=== PATIENT | male | born 1945 | race African-American/Black ===

== ENCOUNTER 2016-10-19 21:43 | Emergency (ER) | payer MEDICARE, OTHER ==
[2016-10-19 21:52] VITALS: BP 145/64
[2016-10-19] MEDS ORDERED: ACETAMINOPHEN 325 MG TABLET PO ONE (22:38)
[2016-10-20] MEDS ORDERED: BENZONATATE 100 MG CAPSULE PO ONE (01:08)
--- NOTE | 2016-10-20 01:54 | ER Document Report ---
ED General - General Chief Complaint: Flu Symptoms Stated Complaint: FLU LIKE SYMPTOMS Notes: Patient is a 71-year-old male with past history of lung cancer in remission, not currently on any chemotherapy who presents with 12 hours of cough, sinus congestion, rhinorrhea, pressure over the forehead. Multiple sick contacts with similar illness. Patient denies any recent history of similar symptoms. He did have a partial pneumonectomy of the left lung back in May 2016. He has not seen his primary care doctor regarding today's concerns. He did receive an influenza vaccination this year. He has not had any associated vomiting, diarrhea, neck pain or altered mental status. He has not done anything to try to treat his symptoms. Nothing worsens his symptoms. TRAVEL OUTSIDE OF THE [place] IN LAST 30 DAYS: No - Related Data Allergies/Adverse Reactions: No Known Allergies Allergy (Verified 06/29/16 17:59) Past Medical History - General Information source: Patient - Social History Smoking Status: Former Smoker Chew tobacco use (# tins/day): No Frequency of alcohol use: None Drug Abuse: None Lives with: Spouse/Significant other Family History: Reviewed & Not Pertinent Patient has suicidal ideation: No Patient has homicidal ideation: No - Past Medical History Cardiac Medical History: Reports: Hx Hypertension Renal/ Medical History: Denies: Hx Peritoneal Dialysis Past Surgical History: Reports: Hx Inguinal Hernia - Immunizations Immunizations up to date: Yes Hx Diphtheria, Pertussis, Tetanus Vaccination: Yes Review of Systems - Review of Systems Notes: Constitutional: Positive for fever. HENT: Negative for sore throat. Eyes: Negative for visual changes. Cardiovascular: Negative for chest pain. Respiratory: Negative for shortness of breath. Positive for cough Gastrointestinal: Negative for abdominal pain, vomiting or diarrhea. Genitourinary: Negative for dysuria. Musculoskeletal: Negative for back pain. Skin: Negative for rash. Neurological: Negative for headaches, weakness or numbness. 10 point ROS negative except as marked above and in HPI. Physical Exam - Vital signs Vitals: Temp Pulse Resp BP Pulse Ox 100.7 F H 87 16 145/64 H 95 10/19/16 21:51 10/19/16 21:51 10/19/16 21:51 10/19/16 21:51 10/19/16 21:51 Interpretation: Febrile Notes: PHYSICAL EXAMINATION: GENERAL: Well-appearing, well-nourished and in no acute distress. HEAD: Atraumatic, normocephalic. EYES: Pupils equal round and reactive to light, extraocular movements intact, sclera anicteric, conjunctiva are normal. ENT: nares patent, oropharynx clear without exudates. Moist mucous membranes. NECK: Normal range of motion, supple without lymphadenopathy LUNGS: Breath sounds clear to auscultation bilaterally and equal. No wheezes rales or rhonchi. HEART: Regular rate and rhythm without murmurs ABDOMEN: Soft, nontender, normoactive bowel sounds. No guarding, no rebound. No masses appreciated. EXTREMITIES: Normal range of motion, no pitting or edema. No cyanosis. NEUROLOGICAL: No focal neurological deficits. Moves all extremities spontaneously and on command. PSYCH: Normal mood, normal affect. SKIN: Warm, Dry, normal turgor, no rashes or lesions noted. Course - Re-evaluation Re-evalutation: 10/20/16 01:54 Patient presents with cough, sinus congestion, rhinorrhea and generalized fatigue. He does have a fever here to 100.7 but vitals are otherwise within normal limits. Multiple sick contacts with similar illness. Presentation is most consistent with a likely viral upper respiratory illness. Influenza testing is negative. Chest x-ray without evidence of acute pneumonia. No egophony on exam. No diminished breath sounds. At this point I do not suspect clinically an acute pneumonia as patient's respiratory rate is normal, pulse oximetry is within normal limits and he is not tachycardic. Clinical history likewise is not consistent with acute pulmonary embolus, meningitis, and patient denies any vomiting, diarrhea, or abdominal pain to suggest an acute abdominal pathology as etiology of his presentation today. I do not believe blood work or urinalysis are indicated at this time based on patient's overall very well appearance and normal vitals with exception of a low-grade fever. At this time will discharge with return precautions and follow-up recommendations. Verbal discharge instructions given a the bedside and opportunity for questions given. Medication warnings reviewed. Patient is in agreement with this plan and has verbalized understanding of return precautions and the need for primary care follow-up in the next 24-72 hours. - Vital Signs Vital signs: Temp Pulse Resp BP Pulse Ox 100.7 F H 87 16 145/64 H 95 10/19/16 21:51 10/19/16 21:51 10/19/16 21:51 10/19/16 21:51 10/19/16 21:51 - Diagnostic Test Radiology reviewed: Image reviewed, Reports reviewed Radiology results interpreted by me: 10/20/16 01:57 Chest x-ray: No acute infiltrate Discharge - Discharge Clinical Impression: Fever Qualifiers: Fever type: unspecified Qualified Code(s): R50.9 - Fever, unspecified Upper respiratory infection Qualifiers: URI type: unspecified URI Qualified Code(s): J06.9 - Acute upper respiratory infection, unspecified Condition: Good Disposition: HOME, SELF-CARE Additional Instructions: Please follow closely with her primary care doctor in the next 1-2 days. Return to the emergency department immediately if you have worsening of your symptoms including increased shortness of breath, vomiting, vomiting, you pass out, began to have abdominal pain, or have any other symptoms that are worrisome to you. Take Tylenol or ibuprofen as needed at home for your symptoms. You can use the Tessalon Perles that were prescribed as needed for severe coughing. Prescriptions: Benzonatate [Tessalon Perle 100 mg Capsule] 100 mg PO Q8HP PRN #40 cap PRN Reason: Referrals: GARRETT CHAPMAN MD [Primary Care Provider] - Follow up tomorrow
== END 2016-10-20 02:14 | disposition home or self-care (01) ==
LOC: ER 21:43
DX: J06.9 Acute upper respiratory infection, unspecified (principal); R50.9 Fever, unspecified; I10 Essential (primary) hypertension; Z87.891 Personal history of nicotine dependence
CPT/HCPCS: 99284; 87804; 71020; A9270 ×2

== ENCOUNTER → 2016-11-05 | Outpatient (CLI) | payer MEDICARE, OTHER | LOC: RAD 10:11 | PROVIDERS: ATTEND Internal Medicine | DX: C34.11 Malignant neoplasm of upper lobe, right bronchus or lung (principal) | CPT/HCPCS: 71250 ==

== ENCOUNTER → 2017-02-08 | Outpatient (CLI) | payer MEDICARE, OTHER ==
--- NOTE | 2017-02-08 09:57 | RADIOLOGY REPORT (SQ) ---
EXAM DESCRIPTION: CT CHEST WITHOUT COMPLETED DATE/TIME: 02/08/2017 9:20 am REASON FOR STUDY: LUNG CA (C34.11,C34.12) C34.11 MALIGNANT NEOPLASM OF UPPER LOBE, RIGHT BRONCHUS O R L COMPARISON: CT dated 11/05/2016 and 11/03/2015. PET-CT dated 04/30/2016 and 01/09/2016. TECHNIQUE: CT scan performed of the chest without intravenous contrast. Images reviewed with lung, soft tissue and bone windows. Reconstructed coronal and sagittal MPR images reviewed. All images st ored on PACS. All CT scanners at this facility use dose modulation, iterative reconstruction, and/or weight based d osing when appropriate to reduce radiation dose to as low as reasonably achievable (ALARA). [facility]: Dose Right [facility]: CareDose [facility]: Dose Right [facility]: Teradose 4D [facility]: [employer] RADIATION DOSE: Up-to-date CT equipment and radiation dose reduction techniques were employed. CTDIv ol: 13.8 mGy. DLP: 497 mGy-cm. mGy. LIMITATIONS: No technical limitations. FINDINGS: LUNGS AND PLEURA: Stable surgical changes in both lungs. Focal density in the posterior l eft upper lobe, abutting the major fissure, with associated surgical clips, unchanged, most likely po stoperative scar. No new nodules or masses. No infiltrates. No pleural effusion or pleural thicken ing. HILAR AND MEDIASTINAL STRUCTURES: Stable 1.2 cm lymph node in the anterior mediastinum. Otherwise no significant adenopathy. No obvious aneurysm. HEART AND VASCULAR STRUCTURES: No aneurysm. No pericardial effusion. Coronary artery calcifications . UPPER ABDOMEN: No significant findings. Possible small gallstone. Limited exam. THYROID AND OTHER SOFT TISSUES: Stable thyromegaly with heterogenous appearance. No adenopathy. BONES: No significant finding. HARDWARE: None in the chest. OTHER: No other significant findings. IMPRESSION: STABLE APPEARANCE OF THE CHEST. STABLE SURGICAL CHANGES IN BOTH LUNGS AND SMALL LYMPH N ODE IN THE ANTERIOR MEDIASTINUM. NO CT EVIDENCE OF PROGRESSION OR OTHER SIGNIFICANT CHANGE. TECHNICAL DOCUMENTATION: JOB ID: [id number] Quality ID # [id number]: Final reports with documentation of one or more dose reduction techniques (e.g., Au tomated exposure control, adjustment of the mA and/or kV according to patient size, use of iterative reconstruction technique) 2010 [employer]- All Rights Reserved
== END ==
LOC: RAD 08:57
PROVIDERS: ATTEND Internal Medicine
DX: C34.11 Malignant neoplasm of upper lobe, right bronchus or lung (principal); C34.12 Malignant neoplasm of upper lobe, left bronchus or lung
CPT/HCPCS: 71250

== ENCOUNTER 2017-03-04 12:51 | Emergency (ER) | payer MEDICARE, OTHER ==
[2017-03-04 13:59] LABS: ABSOLUTE BASOPHILS # (AUTO) 0.1 10^3/uL (0.0-0.2); ABSOLUTE EOSINOPHILS # (AUTO) 0.1 10^3/uL (0.0-0.6); ABSOLUTE LYMPHOCYTES (AUTO) 1.9 10^3/uL (0.5-4.7); ABSOLUTE MONOCYTES (AUTO) 0.6 10^3/uL (0.1-1.4); ABSOLUTE NEUT (AUTO) 3.9 10^3/uL (1.7-8.2); BASOPHILS % (AUTO) 1.4 % (0-2); EOSINOPHILS % (AUTO) 2.1 % (0-6); HEMATOCRIT 38.6 % (37.9-51.0); HEMOGLOBIN 13.1 g/dL (13.5-17.0); HGB HCT DIFFERENCE 0.7; LYMPHOCYTES % (AUTO) 29.1 % (13-45); MEAN CORPUSCULAR HEMOGLOBIN 29.4 pg (27.0-33.4); MEAN CORPUSCULAR HGB CONC 33.9 g/dL (32.0-36.0); MEAN CORPUSCULAR VOLUME 87 fl (80-97); MONOCYTES % (AUTO) 9.2 % (3-13); RED BLOOD COUNT 4.45 10^6/uL (4.35-5.55); RED CELL DISTRIBUTION WIDTH 15.9 % (11.5-14.0); SEGMENTED NEUTROPHILS % (AUTO) 58.2 % (42-78); WHITE BLOOD COUNT 6.6 10^3/uL (4.0-10.5)
[2017-03-04 14:13] LABS: ALANINE AMINOTRANSFERASE 35 U/L (21-72); ALBUMIN 4.2 g/dL (3.5-5.0); ALKALINE PHOSPHATASE 53 U/L (38-126); ANION GAP 12 (5-19); ASPARTATE AMINO TRANSFERASE 24 U/L (17-59); BILIRUBIN,DIRECT 0.3 mg/dL (0.0-0.4); BILIRUBIN,TOTAL 0.5 mg/dL (0.2-1.3); BLOOD UREA NITROGEN 21 mg/dL (7-20); CALCIUM 9.2 mg/dL (8.4-10.2); CARBON DIOXIDE 23 mmol/L (22-30); CHLORIDE 105 mmol/L (98-107); CREATININE RESULT 1.24 mg/dL (0.52-1.25); GLUCOSE 85 mg/dL (75-110); POTASSIUM 4.2 mmol/L (3.6-5.0); SODIUM 139.8 mmol/L (137-145); TOTAL PROTEIN 7.3 g/dL (6.3-8.2)
--- NOTE | 2017-03-04 14:18 | RADIOLOGY REPORT (SQ) ---
EXAM DESCRIPTION: SOFT TISSUE NECK COMPLETED DATE/TIME: 03/04/2017 2:09 pm REASON FOR STUDY: sore throat after pork COMPARISON: None. NUMBER OF VIEWS: Two views. TECHNIQUE: AP and lateral radiographic image of the soft tissues of the neck. LIMITATIONS: None. FINDINGS: EPIGLOTTIS: Normal. Contour normal. Aryepiglottic folds normal. PREVERTEBRAL SOFT TISSUES: Normal. No soft tissue swelling. SUBGLOTTIC AREA: Normal. No narrowing. RETROPHARYNGEAL SPACE: Normal. No soft tissue masses. BONY STRUCTURES: Degenerative disc changes are present at C5-6 and C6-7. Anterior osteophytes are pr esent from C4-C7. LUNG APICES: Normal. OTHER: No radiopaque foreign bodies IMPRESSION: 1. Unremarkable soft tissues of the neck. 2. Cervical degenerative disc disease and spondylosis. TECHNICAL DOCUMENTATION: JOB ID: [id number] [email or web address]- All Rights Reserved
[2017-03-04] MEDS ORDERED: METOCLOPRAMIDE HCL ORAL SOLN 10 MG/10 ML UDCUP PO ONE (14:25)
[2017-03-04] MEDS ORDERED: MAG HYDROX/AL HYDROX/SIMETH SUSP 30 ML UDCUP PO ONE (14:25)
[2017-03-04] MEDS ORDERED: LIDOCAINE 2% VISCOUS SOLN 20 ML UDCUP PO ONE (14:25)
--- NOTE | 2017-03-04 14:26 | ER Document Report ---
ED General - General Chief Complaint: Sore Throat Stated Complaint: SORE THROAT Time Seen by Provider: 03/04/17 13:31 Mode of Arrival: Ambulatory Information source: Patient TRAVEL OUTSIDE OF THE [place] IN LAST 30 DAYS: No - HPI Patient complains to provider of: Sore throat, difficulty swallowing Onset: This morning Onset/Duration: Sudden Quality of pain: Achy Severity: Mild Associated symptoms: Sore throat Notes: Patient is a 71-year-old male who presents to the emergency room complaining of sore throat with foreign body sensation, states it started after he ate some pork chops at lunchtime, states he feels as though he has a piece of pork chop stuck in his throat, since then he has been able to eat some crackers, and drinks some juice without any difficulty, he still feels some irritation in the back of his throat, denies any difficulty breathing, no chest pain, no shortness of breath, no history of similar symptoms previously - Related Data Allergies/Adverse Reactions: No Known Allergies Allergy (Verified 03/04/17 12:57) Past Medical History - General Information source: Patient - Social History Smoking Status: Former Smoker Chew tobacco use (# tins/day): No Frequency of alcohol use: None Drug Abuse: None Family History: Reviewed & Not Pertinent - Past Medical History Cardiac Medical History: Reports: Hx Hypertension Renal/ Medical History: Denies: Hx Peritoneal Dialysis Past Surgical History: Reports: Hx Inguinal Hernia - Immunizations Immunizations up to date: Yes Hx Diphtheria, Pertussis, Tetanus Vaccination: Yes Review of Systems - Review of Systems Constitutional: No symptoms reported EENT: See HPI Cardiovascular: No symptoms reported Respiratory: No symptoms reported Gastrointestinal: No symptoms reported Genitourinary: No symptoms reported Male Genitourinary: No symptoms reported Musculoskeletal: No symptoms reported Skin: No symptoms reported Hematologic/Lymphatic: No symptoms reported Neurological/Psychological: No symptoms reported -: Yes All other systems reviewed and negative Physical Exam - Vital signs Vitals: Temp Pulse Resp BP Pulse Ox 98.8 F 69 18 149/70 H 99 03/04/17 12:55 03/04/17 12:55 03/04/17 12:55 03/04/17 12:55 03/04/17 12:55 Interpretation: Normal - General General appearance: Appears well, Alert - HEENT Head: Normocephalic, Atraumatic Eyes: Normal Conjunctiva: Normal Extraocular movements intact: Yes Eyelashes: Normal Pupils: PERRL Pharynx: Erythema. No: Exudate, Tonsillar hypertrophy, Uvular edema, Potential airway comprom. Neck: Normal - Respiratory Respiratory status: No respiratory distress Chest status: Nontender Breath sounds: Normal Chest palpation: Normal - Cardiovascular Rhythm: Regular Heart sounds: Normal auscultation Murmur: No - Abdominal Inspection: Normal Distension: No distension Bowel sounds: Normal Tenderness: Nontender Organomegaly: No organomegaly - Back Back: Normal, Nontender - Extremities General upper extremity: Normal inspection, Nontender, Normal color, Normal ROM , Normal temperature General lower extremity: Normal inspection, Nontender, Normal color, Normal ROM , Normal temperature, Normal weight bearing. No: Shagufta's sign - Neurological Neuro grossly intact: Yes Cognition: Normal Orientation: AAOx4 Burns Coma Scale Eye Opening: Spontaneous Trina Coma Scale Verbal: Oriented Burns Coma Scale Motor: Obeys Commands Trina Coma Scale Total: 15 Speech: Normal Motor strength normal: LUE, RUE, LLE, RLE Sensory: Normal - Psychological Associated symptoms: Normal affect, Normal mood - Skin Skin Temperature: Warm Skin Moisture: Dry Skin Color: Normal Course - Re-evaluation Re-evalutation: 03/04/17 15:53 Patient reports feeling some improvement of symptoms since having a GI cocktail , he was also able to drink a large glass of water afterwards, I believe symptoms are likely related to esophageal irritation from swallowing a large piece of pork that he initially thought was impacted, since he is able to drink a large amount of water is unlikely that he has any significant knee impaction at this point in time, therefore patient was discharged with instructions for follow-up with gastroenterology, advised to return if symptoms worsen, patient acknowledges understanding and agreement with this plan - Vital Signs Vital signs: Temp Pulse Resp BP Pulse Ox 98.8 F 65 18 124/81 96 03/04/17 12:55 03/04/17 16:14 03/04/17 16:14 03/04/17 16:14 03/04/17 16:14 - Laboratory Result Diagrams: 03/04/17 13:40 03/04/17 13:40 Laboratory results interpreted by me: 03/04/17 03/04/17 13:40 13:40 Hgb 13.1 L RDW 15.9 H BUN 21 H Est GFR (Non-Af Amer) 57 L - Diagnostic Test Radiology reviewed: Image reviewed, Reports reviewed Discharge - Discharge Clinical Impression: Throat irritation Condition: Stable Disposition: HOME, SELF-CARE Instructions: Sore Throat ([facility]), Gastroenterology Additional Instructions: Follow up with your primary care provider in one to 2 days. Return to the emergency room immediately if symptoms worsen or any additional concerns.
[2017-03-04 15:42] LABS: PROTHROMBIN TIME 13.1 SEC (11.4-15.4)
[2017-03-04 16:16] VITALS: BP 124/81
== END 2017-03-04 16:14 | disposition home or self-care (01) ==
LOC: ER 12:51
DX: J02.9 Acute pharyngitis, unspecified (principal); R13.10 Dysphagia, unspecified; R09.89 Other specified symptoms and signs involving the circulatory and respiratory systems; I10 Essential (primary) hypertension; Z87.891 Personal history of nicotine dependence
CPT/HCPCS: 99283; 36415; 85025; 85610; 80053; 70360; J3490; A9270

== ENCOUNTER → 2017-04-05 | Outpatient (CLI) | payer MEDICARE, OTHER | LOC: OD 11:18 | PROVIDERS: ATTEND Urology | DX: C61 Malignant neoplasm of prostate (principal); C34.90 Malignant neoplasm of unspecified part of unspecified bronchus or lung; I10 Essential (primary) hypertension; N52.8 Other male erectile dysfunction; N52.9 Male erectile dysfunction, unspecified | CPT/HCPCS: 36415; 84153 ==

== ENCOUNTER → 2017-05-11 | Outpatient (CLI) | payer MEDICARE, OTHER ==
--- NOTE | 2017-05-11 10:23 | RADIOLOGY REPORT (SQ) ---
EXAM DESCRIPTION: CT CHEST WITHOUT COMPLETED DATE/TIME: 05/11/2017 8:32 am REASON FOR STUDY: LUNG CA C34.11 MALIGNANT NEOPLASM OF UPPER LOBE, RIGHT BRONCHUS OR L COMPARISON: 02/08/2017. TECHNIQUE: CT scan performed of the chest without intravenous contrast. Images reviewed with lung, soft tissue and bone windows. Reconstructed coronal and sagittal MPR images reviewed. All images st ored on PACS. All CT scanners at this facility use dose modulation, iterative reconstruction, and/or weight based d osing when appropriate to reduce radiation dose to as low as reasonably achievable (ALARA). [facility]: Dose Right [facility]: CareDose [facility]: Dose Right [facility]: Teradose 4D [facility]: [employer] RADIATION DOSE: Up-to-date CT equipment and radiation dose reduction techniques were employed. CTDIv ol: 15.7 mGy. DLP: 572 mGy-cm. mGy. LIMITATIONS: No technical limitations, however non use of IV contrast limits assessment of the vesse ls. FINDINGS: LUNGS AND PLEURA: Focal nodular airspace disease in the left upper lobe abuts the left trish or fissure. Similar appearance measuring up to just under 2 cm maximal transverse dimension. This l ooks like scar. Additional areas of scarring along with motion artifact. No developing nodules or m asses or infiltrates, however. Trace right pleural fluid has developed. HILAR AND MEDIASTINAL STRUCTURES: Numerous small nodes in the mediastinum, relatively stable and nonp rogressive. Generally subcentimeter. HEART AND VASCULAR STRUCTURES: Cardiac enlargement with coronary calcification. No pericardial effus ion. Mild dilatation ascending aorta just over 4 cm. Stable appearance. UPPER ABDOMEN: No developing adrenal or liver mass. THYROID AND OTHER SOFT TISSUES: Enlarged thyroid with low-density nodule on the left, chronic. No gr oss supraclavicular or axillary adenopathy. BONES: No developing bone lesions. HARDWARE: None in the chest. OTHER: No other significant findings. IMPRESSION: 1. Stable appearance. Postoperative changes in the lungs have not progressed. No deve loping lesions. Mild shotty mediastinal adenopathy is also stable. TECHNICAL DOCUMENTATION: JOB ID: [id number] Quality ID # [id number]: Final reports with documentation of one or more dose reduction techniques (e.g., Au tomated exposure control, adjustment of the mA and/or kV according to patient size, use of iterative reconstruction technique) 2010 [employer]- All Rights Reserved
== END ==
LOC: RAD 08:13
PROVIDERS: ATTEND Internal Medicine
DX: C34.11 Malignant neoplasm of upper lobe, right bronchus or lung (principal)
CPT/HCPCS: 71250

== ENCOUNTER → 2017-08-20 | Outpatient (CLI) | payer MEDICARE, OTHER ==
--- NOTE | 2017-08-21 16:02 | RADIOLOGY REPORT (SQ) ---
EXAM DESCRIPTION: CT CHEST WITHOUT COMPLETED DATE/TIME: 08/20/2017 10:47 am REASON FOR STUDY: LUNG CA C34.11 MALIGNANT NEOPLASM OF UPPER LOBE, RIGHT BRONCHUS OR L COMPARISON: 05/11/2017 and 02/08/2017. TECHNIQUE: CT scan performed of the chest without intravenous contrast. Images reviewed with lung, soft tissue and bone windows. Reconstructed coronal and sagittal MPR images reviewed. All images st ored on PACS. All CT scanners at this facility use dose modulation, iterative reconstruction, and/or weight based d osing when appropriate to reduce radiation dose to as low as reasonably achievable (ALARA). [facility]: Dose Right [facility]: CareDose [facility]: Dose Right [facility]: Teradose 4D [facility]: [employer] RADIATION DOSE: CT Rad equipment meets quality standard of care and radiation dose reduction techniq ues were employed. CTDIvol: 17.8 mGy. DLP: 669 mGy-cm. mGy. LIMITATIONS: No technical limitations. FINDINGS: LUNGS AND PLEURA: Stable surgical changes with scarring. Focal nodule in the left upper l obe anterior to the major fissure unchanged, measuring 1 x 1.9 cm. No new nodules or masses. No ple ural effusion or pleural thickening. HILAR AND MEDIASTINAL STRUCTURES: Several lymph nodes in the paratracheal region and anterior mediast inum are unchanged. The largest anterior mediastinal lymph node measures 1.2 cm. There is an enlarg ing mass in the upper posterior mediastinum, adjacent to the T2 vertebral body, located to the right side of the esophagus, measuring 1.2 x 2.2 cm (series 3, image 9). HEART AND VASCULAR STRUCTURES: No aneurysm. No pericardial effusion. UPPER ABDOMEN: No significant findings. Limited exam. THYROID AND OTHER SOFT TISSUES: Diffusely enlarged heterogenous thyroid. Focal coarse calcification. No adenopathy. BONES: No significant finding. HARDWARE: None in the chest. OTHER: No other significant findings. IMPRESSION: 1. STABLE SURGICAL CHANGES IN THE LUNGS. STABLE NODULARITY IN THE LEFT UPPER LOBE ADJACENT TO THE MA CARMELLA FISSURE. NO PROGRESSION. NO NEW NODULES OR MASSES. 2. STABLE SHOTTY ADENOPATHY IN THE ANTERIOR MEDIASTINUM AND PARATRACHEAL REGION. 3. ENLARGING MASS IN THE UPPER POSTERIOR MEDIASTINUM DESCRIBED. THIS PRESUMABLY REPRESENTS AN ENL ARGING LYMPH NODE. FURTHER EVALUATION WITH PET SCAN AND POSSIBLY MRI OF THE THORACIC SPINE MAY BE CO NSIDERED. 4. DIFFUSE THYROMEGALY. TECHNICAL DOCUMENTATION: JOB ID: [id number] Quality ID # [id number]: Final reports with documentation of one or more dose reduction techniques (e.g., Au tomated exposure control, adjustment of the mA and/or kV according to patient size, use of iterative reconstruction technique) 2010 [employer]- All Rights Reserved
== END ==
LOC: RAD 10:30
PROVIDERS: ATTEND Internal Medicine
DX: C34.11 Malignant neoplasm of upper lobe, right bronchus or lung (principal)
CPT/HCPCS: 71250

== ENCOUNTER → 2017-08-28 | Outpatient (CLI) | payer MEDICARE, OTHER ==
--- NOTE | 2017-08-29 10:10 | RADIOLOGY REPORT (SQ) ---
EXAM DESCRIPTION: PET CT SKULL/THIGH COMPLETED DATE/TIME: 08/28/2017 8:26 pm REASON FOR STUDY: LUNG CANCER C34.11 MALIGNANT NEOPLASM OF UPPER LOBE, RIGHT BRONCHUS OR L COMPARISON: 04/30/2016 RADIONUCLIDE AND DOSE: 10.2 mCi F18 FDG The route of agent administration: Intravenous FASTING BLOOD SUGAR: 89 mg/dl CONTRAST TYPE AND DOSE: No CT contrast given. TECHNIQUE: Blood glucose level was verified. Above dose of FDG was injected intravenously. 2-D seg mented attenuation correction images were obtained from the base of the skull to the midthighs. Nonc ontrast CT images were obtained for attenuation correction and fusion with emission images. CT image s were performed without oral or intravenous contrast and are not sensitive for parenchymal lesions. A series of overlapping emission PET images were obtained. Images reviewed and manipulated at [facility] work station by the radiologist. Images stored on PACS. LIMITATIONS: None. FINDINGS: HEAD AND NECK: No areas of abnormal metabolic activity in the soft tissues of the head and neck. CHEST: Station 2R node measuring 1.4 x 2.6 cm and 10.0 SUV. Pleural thickening right lower lobe measuring 5.8 SUV. Margins roughly 1.2 x 2.2 cm. There is a lyt ic lesion in the adjacent rib. ABDOMEN AND PELVIS: No areas of abnormal metabolic activity in the abdomen or pelvis. Expected physi ologic activity is present in the genitourinary system and bowel. PROXIMAL LOWER EXTREMITIES: No areas of abnormal metabolic activity in the soft tissues of the lower extremities. BONES: No abnormal metabolic activity in the visualized skeleton. ADDITIONAL CT FINDINGS: Interval wedge resection of middle lobe and left apical nodules. Residual sc ar tissue left apex, non hypermetabolic. Cholelithiasis. OTHER: No other significant findings. IMPRESSION: Hypermetabolic station 2 R node. Hypermetabolic pleural lesion right lower lobe with ad jacent rib destruction. TECHNICAL DOCUMENTATION: JOB ID: [id number] [employer]- All Rights Reserved
== END ==
LOC: RAD 17:19
PROVIDERS: ATTEND Internal Medicine
DX: C34.11 Malignant neoplasm of upper lobe, right bronchus or lung (principal)
CPT/HCPCS: 78815; A9552

== ENCOUNTER 2017-09-19 08:44 | Day surgery (SDC) | payer MEDICARE, OTHER ==
[~2017-09-19 08:44] MED LIST: CEFAZOLIN 1 GM/D5W RTU 1 GM/50 ML RTUPB IV PRN; DEXTROSE 5%-1/2 NORMAL SALINE 1,000 ML IV PRN; DIAZEPAM 5 MG TABLET PO PRN; OXYCODONE-ACETAMINOPHEN 5-325 MG TABLET PO PRN
[2017-09-19] MEDS ORDERED: LIDOCAINE 0.5% INJ-PF (5 MG/ML) 50 ML SDV ONE (09:15)
[2017-09-19] MEDS ORDERED: BACITRACIN INJ 50,000 UNIT VIAL ONE (09:15)
[2017-09-19 09:16] LABS: HEMATOCRIT 38.6 % (37.9-51.0); HEMOGLOBIN 12.7 g/dL (13.5-17.0); MEAN CORPUSCULAR HEMOGLOBIN 26.5 pg (27.0-33.4); MEAN CORPUSCULAR HGB CONC 32.8 g/dL (32.0-36.0); MEAN CORPUSCULAR VOLUME 81 fl (80-97); PLATELET COUNT 355 10^3/uL (150-450); RED BLOOD COUNT 4.77 10^6/uL (4.35-5.55); RED CELL DISTRIBUTION WIDTH 17.2 % (11.5-14.0); WHITE BLOOD COUNT 8.1 10^3/uL (4.0-10.5)
[2017-09-19] MEDS ORDERED: MIDAZOLAM 2 MG/2 ML INJ ONE (09:19)
[2017-09-19] MEDS ORDERED: FENTANYL CITRATE INJ/PF 100 MCG/2 ML AMPUL ONE (09:20)
--- NOTE | 2017-09-19 09:31 | RADIOLOGY REPORT (SQ) ---
EXAM DESCRIPTION: CHEST SINGLE VIEW COMPLETED DATE/TIME: 09/19/2017 9:22 am REASON FOR STUDY: PREOP COMPARISON: None. EXAM PARAMETERS: NUMBER OF VIEWS: One view. TECHNIQUE: Single frontal radiographic view of the chest acquired. RADIATION DOSE: NA LIMITATIONS: None. FINDINGS: LUNGS AND PLEURA: Chronic changes in the right base. No acute opacities, masses or pneumo thorax. No pleural effusion. MEDIASTINUM AND HILAR STRUCTURES: No masses. Contour normal. HEART AND VASCULAR STRUCTURES: Heart normal in size. Normal vasculature. BONES: No acute findings. HARDWARE: None in the chest. OTHER: No other significant finding. IMPRESSION: Chronic changes in the medial right base without evidence of acute cardiopulmonary disea se. TECHNICAL DOCUMENTATION: JOB ID: [id number] [employer]- All Rights Reserved
[2017-09-19 09:43] LABS: ANION GAP 13 (5-19); BLOOD UREA NITROGEN 12 mg/dL (7-20); CALCIUM 9.9 mg/dL (8.4-10.2); CARBON DIOXIDE 22 mmol/L (22-30); CHLORIDE 107 mmol/L (98-107); GLUCOSE 111 mg/dL (75-110); POTASSIUM 4.1 mmol/L (3.6-5.0); SODIUM 141.7 mmol/L (137-145)
[2017-09-19 12:07] VITALS: BP 152/92
--- NOTE | 2017-09-19 12:15 | PDOC DISCHARGE SUMMARY ---
Discharge Summary (SDC) - Discharge Final Diagnosis: #1 lung cancer, multiple comorbidities. Condition: Stable Forms: ASU Anesthesia D/C Instruction, Discharge POC-Surgical Service Treatment or Instructions: Discharge home [after recovery per ASU criteria]. Diet , as tolerated, when fully awake advance as tolerated. Activities within moderation encouraged. Follow up in my office by appointment in about [1 week]. Call for appointment. Leave wounds [covered], [keep clean and dry, until office visit in 1 week]. Hold of on school/work [until evaluation in office]. Meds per med rec. Percocet. May shower [in 48 hrs], [try to keep operated area as dry as possible]. Prescriptions: Oxycodone HCl/Acetaminophen [Percocet 5-325 mg Tablet] 1 tab PO ASDIR PRN #15 tab PRN Reason: Referrals: DIANE WOODS MD [ACTIVE STAFF] - 09/29/17 10:15 am Respiratory Treatments at Home: Deep Breathing/Coughing Discharge Activity: Activity As Tolerated, Balance Activity w/Rest, No Driving, No Lifting Over 10 Pounds, Slowly Increase Activity, Walk Frequently Home Care Assistance: None Needed Report the Following to Your Physician Immediately: Shortness of Breath, Nausea , Vomiting, Increase in Pain, Fever over 101 Degrees, Unusual Bleeding, Redness , Swelling, Warmth, Increased Soreness, IV Site Infection Signs
--- NOTE | 2017-09-19 12:19 | Operative Report ---
Operative Report DATE OF SURGERY: 09/19/17 PREOPERATIVE DIAGNOSIS: #1 lung cancer, multiple comorbidities. POSTOPERATIVE DIAGNOSIS: #1 lung cancer, multiple comorbidities. OPERATION: 1. Ultrasound evaluation of left internal jugular vein. 2. Real- time access in left internal jugular vein. 3. Port-A-Cath placement via real- time axis and left internal jugular vein. 4. Angiogram and interpretation. SURGEON: DIANE BROCK FRETTED INSTRUMENT REPAIRER: None. ANESTHESIA: Moderate Sedation TISSUE REMOVED OR ALTERED: Not applicable. COMPLICATIONS: None. ESTIMATED BLOOD LOSS: 5 mL. INTRAOPERATIVE FINDINGS: Of a satisfactory left internal jugular vein support Port-A-Cath. Good position of catheter with the tip just down in the right atrium. Smooth flow of contrast through the right atrium, ventricle and pulmonary outflow tract. Easy egress of blood and ingress of heparinized solution. PROCEDURE: After obtaining informed consent, the patient was taken to the [employer] [employer] [facility] and positioned supine. The left knee and chest were prepared with chlorhexidine and draped out with sterile linen. After the " universal timeout", in which it was verified that the patient continued to receive antibiotic, the procedure commenced. A steriley sheathed ultrasound probe was used to evaluate the [ right] internal jugular vein. Local anesthesia was infiltrated adjacent to the probe. Access into the [right] internal jugular vein was obtained using a micropuncture needle, followed by micropuncture wire and then a micropuncture catheter. This was followed by introduction of a 0.035 guidewire the tip of which was placed down into the inferior vena cava . The port sites was marked , locally anesthetized and incision made. Dissection now proceeded to the deep subcutaneous subcutaneous tissues so that a pocket for the port was made. Meticulous hemostasis was secured and the catheter was tunneled between the 2 incisions. Proximally, the catheter was now positioned using a peel-away sheath. Distally the catheter was tailored to an appropriate length and then mated to the port using the contained fixating device. The port was now placed in the pocket and the catheter optimally positioned. The port was accessed with a Low needle and an angiogram done under digital subtraction. The findings as dictated. With adequate and satisfactory positioning, both lumens of the chamber were irrigated with heparinized solution. The wounds were now closed using interrupted 3-0 PDS to the subcutaneous tissues and a continuous subcuticular suture of 4-0 Monocryl to the skin. These are reinforced with Steri-Strips over benzoin and then dressings applied. Time: 0.0 minute. Dose: 14.9 m Gy Contrast: 5 mls. Isovue 300. Copies of the dictated operative report for Dr. Diane Edmond MD.
--- NOTE | 2017-09-19 16:25 | RADIOLOGY REPORT (SQ) ---
EXAM DESCRIPTION: PORTACATH INSERTION COMPLETED DATE/TIME: 09/19/2017 10:50 am REASON FOR STUDY: C34.11 RT UPPER LOBE CA C34.11 MALIGNANT NEOPLASM OF UPPER LOBE, RIGHT BRONCHUS O R L COMPARISON: AP chest 09/19/2017 FLUOROSCOPY TIME: Less than 5 seconds 9 series of digital radiographic images saved to PACS. TECHNIQUE: Intra-operative images acquired during surgical procedure to evaluate progress. NUMBER OF IMAGES: 9 series of digital radiographic images LIMITATIONS: None. FINDINGS: Intra procedural imaging and fluoro during left-sided permanent central line placement IMPRESSION: Intra procedural imaging fluoro COMMENT: Quality ID [id number]: Final reports for procedures using fluoroscopy that document radiation exp osure indices, or exposure time and number of fluorographic images (if radiation exposure indices are not available) Please consult full operative report of the attending physician for description of the procedure. TECHNICAL DOCUMENTATION: JOB ID: [id number] [employer]- All Rights Reserved
== END 2017-09-19 12:05 | disposition home or self-care (01) ==
LOC: CCL 08:44
PROVIDERS: ATTEND Surgery
PROC: 02H633Z Insertion of Infusion Device into Right Atrium, Percutaneous Approach (ICD-10-PCS; principal; 2017-09-19)
DX: C34.11 Malignant neoplasm of upper lobe, right bronchus or lung (principal); I10 Essential (primary) hypertension; Z79.82 Long term (current) use of aspirin; Z79.899 Other long term (current) drug therapy
CPT/HCPCS: 36561; 36415; 85027; 80048; 76937; 77001; 71045; C1751; C1752; C1788; Q9967; J2250; J3490 ×2; J0690; A9270 ×2; J3010; J1644

== ENCOUNTER → 2017-11-10 | Outpatient (CLI) | payer MEDICARE, OTHER ==
--- NOTE | 2017-11-10 11:23 | RADIOLOGY REPORT (SQ) ---
EXAM DESCRIPTION: CT CHEST WITH; CT ABD/PELVIS WITH IV ONLY COMPLETED DATE/TIME: 11/10/2017 9:25 am REASON FOR STUDY: LUNG CA (C34.11) C34.11 MALIGNANT NEOPLASM OF UPPER LOBE, RIGHT BRONCHUS OR L COMPARISON: PET-CT 01/09/2016, 04/30/2016, 08/28/2017 CT chest 11/03/2015, 05/11/2017, 08/20/2017 CONTRAST TYPE AND DOSE: contrast/concentration: Isovue 370.00 mg/ml; Total Contrast Delivered: 100.0 ml; Total Saline Delivered: 72.0 ml RENAL FUNCTION: Creatinine 1.0 TECHNIQUE: CT scan of the chest performed using helical scanning technique with dynamic intravenous contrast injection. Images reviewed with lung, soft tissue and bone windows. Reconstructed coronal a nd sagittal MPR images reviewed. All images stored on PACS. CT scan of the abdomen and pelvis performed with intravenous and without oral contrastusing helical s mendy technique with dynamic intravenous contrast injection. Images reviewed with lung, soft tissu e and bone windows. Reconstructed coronal and sagittal MPR images reviewed. Delayed images for eval uation of the urinary system also acquired and evaluated. All images stored on PACS. All CT scanners at this facility use dose modulation, iterative reconstruction, and/or weight based d osing when appropriate to reduce radiation dose to as low as reasonably achievable (ALARA). [facility]: Dose Right [facility]: CareDose [facility]: Dose Right [facility]: Teradose 4D [facility]: [employer] RADIATION DOSE: CT Rad equipment meets quality standard of care and radiation dose reduction techniq ues were employed. CTDIvol: 12.8 - 16.7 mGy. DLP: 2296 mGy-cm. . LIMITATIONS: None. FINDINGS: CHEST: LUNGS AND PLEURA: Post right middle lobe resection with staple line present. No recurrent soft tissu e along the staple line or right hilum. Post wedge resection posterior aspect left upper lobe, with staple line. There stable scarring in th e inferior aspect of the staple line, measuring 2 x 1.2 cm in size, similar compared to 05/11/2017 an d 08/28/2017. HILAR AND MEDIASTINAL STRUCTURES: No identified masses or abnormal nodes. The 2.6 x 1.4 cm lymph nod e seen on 08/28/2017 has decreased in size significantly, now 0.6 x 0.6 cm on image 11. HEART AND VASCULAR STRUCTURES: No aneurysm or dissection. No central pulmonary emboli. No pericardi al effusion. HARDWARE: Left permanent central line tip superior vena cava. THYROID AND OTHER SOFT TISSUES: Stable thyromegaly BONES: No significant finding. OTHER: No other significant finding. ABDOMEN AND PELVIS: LIVER: Normal size. No masses. No dilated ducts. SPLEEN: Normal size. No focal lesions. PANCREAS: No masses. No significant calcifications. No adjacent inflammation or peripancreatic fluid collections. Pancreatic duct not dilated. GALLBLADDER: Tiny stones in the gallbladder, without gallbladder wall thickening or pericholecystic f luid. ADRENAL GLANDS: No significant masses or asymmetry. RIGHT KIDNEY AND URETER: No solid masses. Multiple subcentimeter right midpole cortical cysts. No s ignificant calcification. No hydronephrosis or hydroureter. LEFT KIDNEY AND URETER: No solid masses. Multiple subcentimeter left midpole cortical cysts. No sig nificant calcification. No hydronephrosis or hydroureter. AORTA AND VESSELS: No abdominal aortic aneurysm. No abdominal aortic dissection. Renal arteries, SMA, celiac without stenosis. There is stable aneurysmal dilatation of the right proximal common iliac a rtery 3 cm in diameter. RETROPERITONEUM: No retroperitoneal adenopathy, hemorrhage or masses. BOWEL AND PERITONEAL CAVITY: No masses or inflammatory changes. No free fluid or peritoneal masses. APPENDIX: Normal. ABDOMINAL WALL: Intact umbilical hernia repair PELVIS: No mass or free fluid. Normal bladder. BONES: No significant or acute findings. OTHER: No other significant finding. IMPRESSION: Decrease in size of upper mediastinal lymph node seen on 08/28/2017, currently 0.6 cm in greatest diameter Stable post therapeutic changes in the chest No CT evidence of metastatic disease to the abdomen or pelvis. 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 Tiny gallstones. TECHNICAL DOCUMENTATION: JOB ID: [id number] Quality ID # 436: Final reports with documentation of one or more dose reduction techniques (e.g., Au tomated exposure control, adjustment of the mA and/or kV according to patient size, use of iterative reconstruction technique) 2010 [employer]- All Rights Reserved Reading location - IP/workstation name: [email or web address]
== END ==
LOC: RAD 08:46
PROVIDERS: ATTEND Internal Medicine
DX: C34.11 Malignant neoplasm of upper lobe, right bronchus or lung (principal)
CPT/HCPCS: 71260; 74177

== ENCOUNTER → 2018-01-08 | Outpatient (CLI) | payer MEDICARE, OTHER ==
--- NOTE | 2018-01-09 09:21 | RADIOLOGY REPORT (SQ) ---
EXAM DESCRIPTION: PET CT SKULL/THIGH COMPLETED DATE/TIME: 01/08/2018 8:30 pm REASON FOR STUDY: LUNG CANCER C34.11 MALIGNANT NEOPLASM OF UPPER LOBE, RIGHT BRONCHUS OR L COMPARISON: CT chest abdomen pelvis 11/10/2017 PET-CT 08/28/2017, 04/30/2016 RADIONUCLIDE AND DOSE: 11.5 mCi F18 FDG The route of agent administration: Intravenous FASTING BLOOD SUGAR: 94 mg/dl CONTRAST TYPE AND DOSE: No CT contrast given. TECHNIQUE: Blood glucose level was verified. Above dose of FDG was injected intravenously. 2-D seg mented attenuation correction images were obtained from the base of the skull to the midthighs. Nonc ontrast CT images were obtained for attenuation correction and fusion with emission images. CT image s were performed without oral or intravenous contrast and are not sensitive for parenchymal lesions. A series of overlapping emission PET images were obtained. Images reviewed and manipulated at [facility] work station by the radiologist. Images stored on PACS. LIMITATIONS: None. FINDINGS: HEAD AND NECK: No areas of abnormal metabolic activity in the soft tissues of the head and neck. CHEST: No metabolically active mediastinal adenopathy. Previously biopsied hypermetabolic 2R mediast inal lymph node seen on 08/28/2017 is no longer identified. There is 2 x 1 cm bandlike scarring along the posterior aspect left upper lobe post wedge resection of a nodule. This is non metabolic. Sayda ent is post right middle lobe resection. No metabolically active tissue is seen along the right midd le lobe staple line. ABDOMEN AND PELVIS: No areas of abnormal metabolic activity in the abdomen or pelvis. Expected physi ologic activity is present in the genitourinary system and bowel. PROXIMAL LOWER EXTREMITIES: No areas of abnormal metabolic activity in the soft tissues of the lower extremities. BONES: No abnormal metabolic activity in the visualized skeleton. ADDITIONAL CT FINDINGS: Stones in the gallbladder. Intact ventral hernia repair. 3 cm aneurysm righ t common iliac artery. Diffuse thyromegaly. Left permanent central line tip superior vena cava. OTHER: No other significant findings. IMPRESSION: No hypermetabolic lesions worrisome for residual or recurrent tumor. TECHNICAL DOCUMENTATION: JOB ID: [id number] [employer]- All Rights Reserved Reading location - IP/workstation name: [email or web address]
== END ==
LOC: RAD 17:13
PROVIDERS: ATTEND Internal Medicine
DX: C34.11 Malignant neoplasm of upper lobe, right bronchus or lung (principal); K80.20 Calculus of gallbladder without cholecystitis without obstruction
CPT/HCPCS: 78815; A9552

== ENCOUNTER → 2018-03-06 | Outpatient (CLI) | payer MEDICARE, OTHER ==
--- NOTE | 2018-03-06 09:24 | RADIOLOGY REPORT (SQ) ---
EXAM DESCRIPTION: CT CHEST WITH COMPLETED DATE/TIME: 03/06/2018 8:45 am REASON FOR STUDY: MALIGNANT NEOPLASM OF UPPER LOBE, RIGHT BRONCHUS OR LUNG C34.11 MALIGNANT NEOPLAS M OF UPPER LOBE, RIGHT BRONCHUS OR L COMPARISON: 11/10/2017 TECHNIQUE: CT scan of the chest performed using helical scanning technique with dynamic intravenous contrast injection. Images reviewed with lung, soft tissue and bone windows. Reconstructed coronal and sagittal MPR images reviewed. All images stored on PACS. All CT scanners at this facility use dose modulation, iterative reconstruction, and/or weight based d osing when appropriate to reduce radiation dose to as low as reasonably achievable (ALARA). [facility]: Dose Right [facility]: CareDose [facility]: Dose Right [facility]: Teradose 4D [facility]: [employer] CONTRAST TYPE AND DOSE: 100 cc Isovue 370 RENAL FUNCTION: Creatinine- 0.9 BUN=11 RADIATION DOSE: Total exam DLP: 1834.21 mGy LIMITATIONS: None. FINDINGS: LUNGS AND PLEURA: Stable post operative changes in the right upper-middle lobe. Stable p ost operative changes in the left upper lobe. As on the prior examination, stable soft tissue densi ty along the inferior aspect of the staple line, may represent scar. Mild emphysematous changes in th e lungs. No pneumothorax or pleural effusion. The central airways are clear. HILAR AND MEDIASTINAL STRUCTURES: Stable appearing mediastinal lymph nodes. HEART AND VASCULAR STRUCTURES: Mild atherosclerotic changes involving the abdominal aorta. Stable m ild dilatation of the ascending thoracic aorta which measures 4.1-4.2 cm in diameter at the level of the main pulmonary artery. No dissection. No central pulmonary emboli. No pericardial effusion. HARDWARE: Stable Left Zowaoy-S-Joom catheter. UPPER ABDOMEN: Please see CT abdomen report. THYROID AND OTHER SOFT TISSUES: The thyroid gland is stable in appearance. As on the prior examinat ion, the thyroid gland is prominent in size with multiple hypoattenuated nodules, some of which are h eterogenous in appearance. BONES: The osseous structures are stable in appearance. OTHER: No other significant finding. IMPRESSION: 1 No significant interval changes since the prior examination dated 11/10/2017. 2. Stable post operative changes in the lungs. 3. Additional stable findings as above. TECHNICAL DOCUMENTATION: JOB ID: [id number] Quality ID # 436: Final reports with documentation of one or more dose reduction techniques (e.g., Au tomated exposure control, adjustment of the mA and/or kV according to patient size, use of iterative reconstruction technique) 2010 [employer]- All Rights Reserved Reading location - IP/workstation name: [email or web address]
--- NOTE | 2018-03-06 09:44 | RADIOLOGY REPORT (SQ) ---
EXAM DESCRIPTION: CT ABD/PELVIS WITH IV ORAL COMPLETED DATE/TIME: 03/06/2018 8:45 am REASON FOR STUDY: MALIGNANT NEOPLASM OF UPPER LOBE, RIGHT BRONCHUS OR LUNG C34.11 MALIGNANT NEOPLAS M OF UPPER LOBE, RIGHT BRONCHUS OR L COMPARISON: 11/10/2017 TECHNIQUE: CT scan of the abdomen and pelvis performed using helical scanning technique with dynamic intravenous contrast injection. No oral contrast. Images reviewed with lung, soft tissue, and bone windows. Reconstructed coronal and sagittal MPR images reviewed. Delayed images for evaluation of the urinary system also acquired. All images stored on PACS. All CT scanners at this facility use dose modulation, iterative reconstruction, and/or weight based d osing when appropriate to reduce radiation dose to as low as reasonably achievable (ALARA). [facility]: Dose Right [facility]: CareDose [facility]: Dose Right [facility]: Teradose 4D [facility]: [employer]. CONTRAST TYPE AND DOSE: contrast/concentration: Isovue 370.00 mg/ml; Total Contrast Delivered: 100.0 ml; Total Saline Delivered: 72.0 ml RENAL FUNCTION: Creatinine -0.9 BUN=11 RADIATION DOSE: CT Rad equipment meets quality standard of care and radiation dose reduction techniq ues were employed. CTDIvol: 11.2 - 13.5 mGy. DLP: 1834 mGy-cm.. LIMITATIONS: None. FINDINGS: LOWER CHEST: Please see CT chest report. LIVER: Stable appearing homogeneous enhancing density in the liver parenchyma near the region of the gallbladder fossa, axial image 23, series 3. This finding is not well visualized on the post contra st images, probably on a benign basis. No dilated ducts. The hepatic and portal veins are patent. SPLEEN: Normal size. No focal lesions. PANCREAS: No masses. No significant calcifications. No adjacent inflammation or peripancreatic fluid collections. Pancreatic duct not dilated. GALLBLADDER: Small stable gallstones. No inflammatory changes to suggest cholecystitis. ADRENAL GLANDS: No significant masses or asymmetry. RIGHT KIDNEY AND URETER: Stable complex slightly heterogenous well-circumscribed 1.2 cm x 1.2 cm les ion in the posteromedial aspect of the mid-lower pole of the right kidney with CT numbers above water range, axial image 36, series 8. There are other smaller stable appearing hypoattenuated lesions ma y represent cysts. No hydronephrosis or hydroureter. LEFT KIDNEY AND URETER: Stable left renal cysts. Stable focal cortical scarring along the medial as pect of the lower pole of the kidney. No hydronephrosis or hydroureter. AORTA AND VESSELS: Atherosclerotic changes involving the abdominal aorta and branch vessels. Stable appearing right proximal common iliac artery aneurysm measures 3.0 cm in diameter. No dissection. Re nal arteries, SMA, celiac without stenosis. RETROPERITONEUM: No retroperitoneal adenopathy, hemorrhage or masses. BOWEL AND PERITONEAL CAVITY: No masses or inflammatory changes. No free fluid or peritoneal masses. APPENDIX: Normal. PELVIS: Prior prostatectomy. No free fluid. Normal bladder. ABDOMINAL WALL: Stable post surgical changes right inguinal region may be related to prior hernia re pair. BONES: The osseous structures are stable in appearance. OTHER: No other significant finding. IMPRESSION: 1 No significant interval changes since the prior examination dated 11/10/2017. 2. Stable appearing right proximal common iliac artery aneurysm measures 3.0 cm in diameter. 3. Bilateral renal cysts. Stable appearing slightly heterogenous, complex lesion in the mid-lower p ole of the right kidney. Further evaluation with Renal ultrasound suggested. 4. Very small gallstones, stable finding. 5. Additional stable findings as above. TECHNICAL DOCUMENTATION: JOB ID: [id number] Quality ID # 436: Final reports with documentation of one or more dose reduction techniques (e.g., Au tomated exposure control, adjustment of the mA and/or kV according to patient size, use of iterative reconstruction technique) 2010 [employer]- All Rights Reserved Reading location - IP/workstation name: [email or web address]
== END ==
LOC: RAD 08:13
PROVIDERS: ATTEND Internal Medicine
DX: C34.11 Malignant neoplasm of upper lobe, right bronchus or lung (principal); N28.1 Cyst of kidney, acquired; K80.80 Other cholelithiasis without obstruction
CPT/HCPCS: 71260; 74177

== ENCOUNTER → 2018-05-04 | Outpatient (CLI) | payer MEDICARE, OTHER ==
--- NOTE | 2018-05-04 15:19 | RADIOLOGY REPORT (SQ) ---
EXAM DESCRIPTION: VENOUS UNILATERAL UPPER COMPLETED DATE/TIME: 05/04/2018 2:44 pm REASON FOR STUDY: RUE SWELLING M79.609 PAIN IN UNSPECIFIED LIMB M79.89 OTHER SPECIFIED SOFT TISSUE DISORDERS COMPARISON: None. TECHNIQUE: Dynamic and static ruiz scale and color images acquired of the right arm venous system. S elected spectral images acquired with additional compression and augmentation maneuvers. The contrala teral subclavian vein and internal jugular vein were also imaged. Images stored on PACS. LIMITATIONS: None. FINDINGS: INTERNAL JUGULAR VEIN: Normal phasicity, compression, augmentation. No visualized echogeni c material on ruiz scale. No defects on color images. Comparison opposite side normal. SUBCLAVIAN VEIN: Normal compression, augmentation. No visualized echogenic material on ruiz scale. No defects on color images. AXILLARY VEIN: Normal compression, augmentation. No visualized echogenic material on ruiz scale. No d efects on color images. BRACHIAL VEIN: Normal compression, augmentation. No visualized echogenic material on ruiz scale. No d efects on color images. BASILIC VEIN: Normal compression, augmentation. No visualized echogenic material on ruiz scale. No de fects on color images. CEPHALIC VEIN: Normal compression, augmentation. No visualized echogenic material on ruiz scale. No d efects on color images. OTHER: No other significant finding. CONTRALATERAL SUBCLAVIAN VEIN AND INTERNAL JUGULAR VEIN: Normal phasicity, compression and augmentation. No visualized echogenic material on ruiz scale. No de fects on color images. IMPRESSION: NO EVIDENCE DVT OR SVT IN THE RIGHT ARM. TECHNICAL DOCUMENTATION: JOB ID: [id number] [employer]- All Rights Reserved Reading location - IP/workstation name: [email or web address]
== END ==
LOC: SP 13:29
PROVIDERS: ATTEND Internal Medicine
DX: M79.601 Pain in right arm (principal); M79.89 Other specified soft tissue disorders
CPT/HCPCS: 93971

== ENCOUNTER → 2018-05-29 | Outpatient (CLI) | payer MEDICARE, OTHER ==
--- NOTE | 2018-05-29 14:56 | RADIOLOGY REPORT (SQ) ---
EXAM DESCRIPTION: CT CHEST WITH COMPLETED DATE/TIME: 05/29/2018 9:09 am REASON FOR STUDY: C34.11 MALIGNANT NEOPLASM OF UPPER LOBE, RIGHT BRONCHUS OR LUNG C34.11 MALIGNANT NEOPLASM OF UPPER LOBE, RIGHT BRONCHUS OR L COMPARISON: 03/06/2018 and 11/10/2017. TECHNIQUE: CT scan of the chest performed using helical scanning technique with dynamic intravenous contrast injection. Images reviewed with lung, soft tissue and bone windows. Reconstructed coronal and sagittal MPR and MIP images reviewed. All images stored on PACS. All CT scanners at this facility use dose modulation, iterative reconstruction, and/or weight based d osing when appropriate to reduce radiation dose to as low as reasonably achievable (ALARA). [facility]: Dose Right [facility]: CareDose [facility]: Dose Right [facility]: Teradose 4D [facility]: [employer] CONTRAST TYPE AND DOSE: 100 mL Omnipaque 350- low osmolar. RENAL FUNCTION: BUN 16 creatinine 1.1. RADIATION DOSE: . LIMITATIONS: None. FINDINGS: LUNGS AND PLEURA: Stable surgical changes. Chronic parenchymal scarring. Focal scar in t he posterior left upper lobe unchanged. No new nodules or masses. No pleural effusion. No pleural thickening or calcification. HILAR AND MEDIASTINAL STRUCTURES: No identified masses or abnormal nodes. HEART AND VASCULAR STRUCTURES: No aneurysm or dissection. No central pulmonary emboli. No pericardi al effusion. HARDWARE: Vascular port. UPPER ABDOMEN: No significant findings. Limited exam. THYROID AND OTHER SOFT TISSUES: Stable enlargement of the thyroid with heterogenous nodular appearanc e. No adenopathy. BONES: No significant finding. OTHER: No other significant finding. IMPRESSION: 1. STABLE CT OF THE CHEST WITH IV CONTRAST. SURGICAL CHANGES WITH AREAS OF SCARRING, PARTICULARLY IN THE POSTERIOR LEFT UPPER LOBE, UNCHANGED. NO NEW NODULES OR MASSES. NO EVIDENCE OF RESIDUAL OR REC URRENT DISEASE OR METASTASIS. 2. STABLE APPEARANCE OF THE THYROID, PRESUMABLY MULTINODULAR GOITER. TECHNICAL DOCUMENTATION: JOB ID: [id number] Quality ID # 436: Final reports with documentation of one or more dose reduction techniques (e.g., Au tomated exposure control, adjustment of the mA and/or kV according to patient size, use of iterative reconstruction technique) 2010 [employer]- All Rights Reserved Reading location - IP/workstation name: [email or web address]
--- NOTE | 2018-05-29 15:10 | RADIOLOGY REPORT (SQ) ---
EXAM DESCRIPTION: CT ABD/PELVIS WITH IV ONLY COMPLETED DATE/TIME: 05/29/2018 9:09 am REASON FOR STUDY: C34.11 MALIGNANT NEOPLASM OF UPPER LOBE, RIGHT BRONCHUS OR LUNG C34.11 MALIGNANT NEOPLASM OF UPPER LOBE, RIGHT BRONCHUS OR L COMPARISON: 03/06/2018 and 11/10/2017. TECHNIQUE: CT scan of the abdomen and pelvis performed using helical scanning technique with dynamic intravenous contrast injection. No oral contrast. Images reviewed with lung, soft tissue, and bone windows. Reconstructed coronal and sagittal MPR images reviewed. Delayed images for evaluation of the urinary system also acquired. All images stored on PACS. All CT scanners at this facility use dose modulation, iterative reconstruction, and/or weight based d osing when appropriate to reduce radiation dose to as low as reasonably achievable (ALARA). [facility]: Dose Right [facility]: CareDose [facility]: Dose Right [facility]: Teradose 4D [facility]: [employer] CONTRAST TYPE AND DOSE: contrast/concentration: Isovue 350.00 mg/ml; Total Contrast Delivered: 100.0 ml; Total Saline Delivered: 72.0 ml RENAL FUNCTION: BUN 16 creatinine 1.1. RADIATION DOSE: CT Rad equipment meets quality standard of care and radiation dose reduction techniq ues were employed. CTDIvol: 11.1 - 12.8 mGy. DLP: 1839 mGy-cm.. LIMITATIONS: None. FINDINGS: LOWER CHEST: No significant findings. No nodules or infiltrates. LIVER: Normal size. No masses. No dilated ducts. SPLEEN: Normal size. No focal lesions. PANCREAS: No masses. No significant calcifications. No adjacent inflammation or peripancreatic fluid collections. Pancreatic duct not dilated. GALLBLADDER: Gallstones. No inflammatory changes to suggest cholecystitis. ADRENAL GLANDS: No significant masses or asymmetry. RIGHT KIDNEY AND URETER: Stable small cortical cysts. No solid masses. No significant calcificatio ns. No hydronephrosis or hydroureter. LEFT KIDNEY AND URETER: Stable small cortical cysts. No solid masses. No significant calcification s. No hydronephrosis or hydroureter. AORTA AND VESSELS: No aortic aneurysm. Stable 3.0 cm aneurysm of the right common iliac artery. No dissection. Renal arteries, SMA, celiac without stenosis. RETROPERITONEUM: No retroperitoneal adenopathy, hemorrhage or masses. BOWEL AND PERITONEAL CAVITY: No masses or inflammatory changes. No free fluid or peritoneal masses. APPENDIX: Normal. PELVIS: No mass. No free fluid. Normal bladder. ABDOMINAL WALL: No masses. No hernias. BONES: No significant or acute findings. OTHER: No other significant finding. IMPRESSION: 1. 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 2. GALLSTONES. 3. SMALL CYSTS IN BOTH KIDNEYS. 4. NO EVIDENCE OF METASTATIC INVOLVEMENT IN THE ABDOMEN OR PELVIS. NO OTHER SIGNIFICANT OR ACUTE FIN DING IN THE ABDOMEN OR PELVIS ON CT SCAN WITH IV CONTRAST. TECHNICAL DOCUMENTATION: JOB ID: [id number] Quality ID # 436: Final reports with documentation of one or more dose reduction techniques (e.g., Au tomated exposure control, adjustment of the mA and/or kV according to patient size, use of iterative reconstruction technique) 2010 [employer]- All Rights Reserved Reading location - IP/workstation name: [email or web address]
== END ==
LOC: RAD 08:50
PROVIDERS: ATTEND Internal Medicine
DX: C34.11 Malignant neoplasm of upper lobe, right bronchus or lung (principal); M79.609 Pain in unspecified limb; M79.89 Other specified soft tissue disorders; K80.80 Other cholelithiasis without obstruction
CPT/HCPCS: 71260; 74177

== ENCOUNTER → 2018-08-21 | Outpatient (CLI) | payer MEDICARE, OTHER ==
--- NOTE | 2018-08-21 09:38 | RADIOLOGY REPORT (SQ) ---
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 Images reviewed with lung, soft tissue and bone windows. Reconstructed coronal a nd sagittal MPR images reviewed. All images stored on PACS. CT scan of the abdomen and pelvis performed with intravenous and without oral contrastusing helical s mendy technique with dynamic intravenous contrast injection. Images reviewed with lung, soft tissu e and bone windows. Reconstructed coronal and sagittal MPR images reviewed. Delayed images for eval uation of the urinary system also acquired and evaluated. All images stored on PACS. All CT scanners at this facility use dose modulation, iterative reconstruction, and/or weight based d osing when appropriate to reduce radiation dose to as low as reasonably achievable (ALARA). [facility]: Dose Right [facility]: CareDose [facility]: Dose Right [facility]: Teradose 4D [facility]: [employer] RADIATION DOSE: CT Rad equipment meets quality standard of care and radiation dose reduction techniq ues were employed. CTDIvol: 12.7 - 14.1 mGy. DLP: 1984 mGy-cm. . LIMITATIONS: None. FINDINGS: CHEST: LUNGS AND PLEURA: No opacities, nodules, masses. No pneumothorax. No effusions. Post right middle l obe resection. Post left upper lobe wedge resection. HILAR AND MEDIASTINAL STRUCTURES: No identified masses or abnormal nodes. HEART AND VASCULAR STRUCTURES: No aneurysm or dissection. No central pulmonary emboli. No pericardi al effusion. Spotty coronary artery calcification HARDWARE: Left permanent central line tip superior vena cava THYROID AND OTHER SOFT TISSUES: Diffuse thyromegaly, stable. BONES: Degenerative disc changes lower thoracic spine OTHER: No other significant finding. ABDOMEN AND PELVIS: LIVER: Normal size. No masses. No dilated ducts. SPLEEN: Normal size. No focal lesions. PANCREAS: No masses. No significant calcifications. No adjacent inflammation or peripancreatic fluid collections. Pancreatic duct not dilated. GALLBLADDER: Tiny stones in the gallbladder. No gallbladder wall thickening or pericholecystic fluid ADRENAL GLANDS: No significant masses or asymmetry. RIGHT KIDNEY AND URETER: No solid masses. Subcentimeter cysts right kidney. No significant calcific ation. No hydronephrosis or hydroureter. LEFT KIDNEY AND URETER: No solid masses. Subcentimeter cysts left kidney. No significant calcificat ion. No hydronephrosis or hydroureter. AORTA AND VESSELS: 3 cm right proximal common iliac artery aneurysm, stable compared to prior studies . No abdominal aortic aneurysm. No abdominal aortic dissection. Renal arteries, SMA, celiac without stenosis. RETROPERITONEUM: No retroperitoneal adenopathy, hemorrhage or masses. BOWEL AND PERITONEAL CAVITY: No masses or inflammatory changes. No free fluid or peritoneal masses. APPENDIX: Normal. ABDOMINAL WALL: Intact ventral hernia repair PELVIS: No mass or free fluid. Normal bladder. BONES: No significant or acute findings. OTHER: No other significant finding. IMPRESSION: No CT evidence of metastatic disease to the chest abdomen or pelvis TECHNICAL DOCUMENTATION: JOB ID: [id number] Quality ID # 436: Final reports with documentation of one or more dose reduction techniques (e.g., Au tomated exposure control, adjustment of the mA and/or kV according to patient size, use of iterative reconstruction technique) 2010 [employer]- All Rights Reserved Reading location - IP/workstation name: [email or web address]
== END ==
LOC: RAD 07:55
PROVIDERS: ATTEND Physician Assistant Medical
DX: C34.11 Malignant neoplasm of upper lobe, right bronchus or lung (principal); M51.34 Other intervertebral disc degeneration, thoracic region
CPT/HCPCS: 71260; 74177

== ENCOUNTER → 2018-10-17 | Outpatient (CLI) | payer MEDICARE, OTHER ==
--- NOTE | 2018-10-17 09:11 | RADIOLOGY REPORT (SQ) ---
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 Images reviewed with lung, soft tissue and bone windows. Reconstructed coronal and sagittal MPR and MIP images reviewed. All images stored on PACS. All CT scanners at this facility use dose modulation, iterative reconstruction, and/or weight based d osing when appropriate to reduce radiation dose to as low as reasonably achievable (ALARA). [facility]: Dose Right [facility]: CareDose [facility]: Dose Right [facility]: Teradose 4D [facility]: [employer] CONTRAST TYPE AND DOSE: 172 cc Omnipaque 350 RENAL FUNCTION: See chart RADIATION DOSE: . LIMITATIONS: None. FINDINGS: LUNGS AND PLEURA: Stable nodular scarring from prior left upper lobe wedge resection. Pos tsurgical changes from the right middle lobe resection. There is lobular pleural thickening measurin g 36 x 15 mm (series 2, image 24) along the right posterolateral hemithorax at the level of the 7th r ib which has progressed from priors. There is adjacent bony destruction at the level. No evidence o f new airspace disease, pleural effusion or pneumothorax occurred no new parenchymal nodules or jessica s. Mild upper lobe centrilobular emphysematous change. HILAR AND MEDIASTINAL STRUCTURES: Stable shotty mediastinal nodes without new mediastinal, hilar or a xillary adenopathy. HEART AND VASCULAR STRUCTURES: Scattered coronary atherosclerosis. Normal heart size. No pericardia l effusion. HARDWARE: Left-sided chest port with the catheter tip at T8 cavoatrial junction. UPPER ABDOMEN: See same-day abdomen CT for findings below the diaphragm. THYROID AND OTHER SOFT TISSUES: Partially evaluated enlarged multinodular thyroid, similar to priors. BONES: There has been increase in cortical destruction along a posterolateral right 7th rib adjacent to the lobular pleural thickening. S increased from priors which previously-seen was. OTHER: No other significant finding. IMPRESSION: Progression of an area of lobular pleural thickening along the right posterolateral jeanie thorax with adjacent bony destruction suspicious for pleural disease and osseous involvement. Stable postsurgical changes within the right middle left upper lobes as above. No evidence of acute intrathoracic process. TECHNICAL DOCUMENTATION: JOB ID: [id number] Quality ID # 436: Final reports with documentation of one or more dose reduction techniques (e.g., Au tomated exposure control, adjustment of the mA and/or kV according to patient size, use of iterative reconstruction technique) 2010 [employer]- All Rights Reserved Reading location - IP/workstation name: [email or web address]
--- NOTE | 2018-10-17 09:22 | RADIOLOGY REPORT (SQ) ---
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 TECHNIQUE: CT scan of the abdomen and pelvis performed using helical scanning technique with dynamic intravenous contrast injection. No oral contrast. Images reviewed with lung, soft tissue, and bone windows. Reconstructed coronal and sagittal MPR images reviewed. Delayed images for evaluation of the urinary system also acquired. All images stored on PACS. All CT scanners at this facility use dose modulation, iterative reconstruction, and/or weight based d osing when appropriate to reduce radiation dose to as low as reasonably achievable (ALARA). [facility]: Dose Right [facility]: CareDose [facility]: Dose Right [facility]: Teradose 4D [facility]: [employer] CONTRAST TYPE AND DOSE: contrast/concentration: Isovue 350.00 mg/ml; Total Contrast Delivered: 100.0 ml; Total Saline Delivered: 72.0 ml 100 cc Omnipaque 350 RENAL FUNCTION: See chart RADIATION DOSE: CT Rad equipment meets quality standard of care and radiation dose reduction techniq ues were employed. CTDIvol: 12.2 - 14.0 mGy. DLP: 1951 mGy-cm.. LIMITATIONS: None. FINDINGS: LOWER CHEST: See separate report of the CT of the chest. LIVER: Unchanged increased attenuation adjacent to the gallbladder fossa, likely fatty sparing. No n ew hepatic lesions. No intrahepatic ductal dilation. SPLEEN: Normal size. No focal lesions. PANCREAS: No masses. No significant calcifications. No adjacent inflammation or peripancreatic fluid collections. Pancreatic duct not dilated. GALLBLADDER: Cholelithiasis likely. No wall thickening or pericholecystic fluid. ADRENAL GLANDS: No significant masses or asymmetry. RIGHT KIDNEY AND URETER: Unchanged subcentimeter lower pole hypo dense lesion, likely cyst. No sign ificant calcifications. No hydronephrosis or hydroureter. LEFT KIDNEY AND URETER: Unchanged lower pole hypodense cyst. No significant calcifications. No hy dronephrosis or hydroureter. AORTA AND VESSELS: Aortoiliac atherosclerosis with unchanged dilation ectasia of the bilateral proxim al iliac arteries measuring up to 3.0 cm on the right. . RETROPERITONEUM: No retroperitoneal adenopathy, hemorrhage or masses. BOWEL AND PERITONEAL CAVITY: No masses or inflammatory changes. No free fluid or peritoneal masses. APPENDIX: Normal. PELVIS: No mass. No free fluid. Normal bladder. ABDOMINAL WALL: No masses. Evidence of prior ventral hernia repair. . BONES: Lower lumbar facet arthropathy. No acute bony abnormality. OTHER: No other significant finding. IMPRESSION: No evidence of metastatic disease within the abdomen or pelvis. Additional chronic findings as above. TECHNICAL DOCUMENTATION: JOB ID: [id number] Quality ID # 436: Final reports with documentation of one or more dose reduction techniques (e.g., Au tomated exposure control, adjustment of the mA and/or kV according to patient size, use of iterative reconstruction technique) 2010 [employer]- All Rights Reserved Reading location - IP/workstation name: [email or web address]
== END ==
LOC: RAD 09:45
PROVIDERS: ATTEND Physician Assistant Medical
DX: C34.11 Malignant neoplasm of upper lobe, right bronchus or lung (principal)
CPT/HCPCS: 71260; 74177

== ENCOUNTER → 2018-10-30 | Outpatient (CLI) | payer MEDICARE, OTHER ==
--- NOTE | 2018-10-30 16:28 | RADIOLOGY REPORT (SQ) ---
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 The route of agent administration: Intravenous. ADDITIONAL DRUGS AND DOSES: None. TECHNIQUE: Routine delayed images at 3 hour post radionuclide injection acquired of the bony skeleto n including anterior and posterior whole-body projections and additional focused images as needed. LIMITATIONS: None. FINDINGS: BONES: There is minimal increased uptake along the posterior right 7th rib at the level of an old right posterior rib thoracotomy defect. Remainder of the skeletal uptake is otherwise unremarkable. KIDNEYS: Symmetric excretion without obstruction. OTHER: No other significant finding. IMPRESSION: Minimal uptake along an old right posterior 7th rib thoracotomy defect. Otherwise unrem arkable study. COMMENT: Quality measure 147: Current bone scan is compared with any available plain radiographs, p rior bone scans, and CT/MRI. TECHNICAL DOCUMENTATION: JOB ID: [id number] [employer]- All Rights Reserved Reading location - IP/workstation name: [email or web address]
== END ==
LOC: RAD 14:11
PROVIDERS: ATTEND Radiology Radiation Oncology
DX: C34.11 Malignant neoplasm of upper lobe, right bronchus or lung (principal)
CPT/HCPCS: 78306; A9561; Q9969

== ENCOUNTER → 2019-01-18 | Outpatient (CLI) | payer MEDICARE, OTHER ==
--- NOTE | 2019-01-18 13:23 | RADIOLOGY REPORT (SQ) ---
EXAM DESCRIPTION: CT CHEST WITH; CT ABD/PELVIS WITH IV ONLY COMPLETED DATE/TIME: 01/18/2019 10:44 am REASON FOR STUDY: LUNG CA C34.11 MALIGNANT NEOPLASM OF UPPER LOBE, RIGHT BRONCHUS OR L COMPARISON: Bone scan 01/18/2019 CT chest abdomen pelvis 10/17/2018, 08/21/2018, 05/29/2018, 03/06/2018 CONTRAST TYPE AND DOSE: contrast/concentration: Isovue 350.00 mg/ml; Total Contrast Delivered: 100.0 ml; Total Saline Delivered: 72.0 ml RENAL FUNCTION: Creatinine 0.9 TECHNIQUE: CT scan of the chest performed using helical scanning technique with dynamic intravenous contrast injection. Images reviewed with lung, soft tissue and bone windows. Reconstructed coronal a nd sagittal MPR images reviewed. All images stored on PACS. CT scan of the abdomen and pelvis performed with intravenous and without oral contrastusing helical s mendy technique with dynamic intravenous contrast injection. Images reviewed with lung, soft tissu e and bone windows. Reconstructed coronal and sagittal MPR images reviewed. Delayed images for eval uation of the urinary system also acquired and evaluated. All images stored on PACS. All CT scanners at this facility use dose modulation, iterative reconstruction, and/or weight based d osing when appropriate to reduce radiation dose to as low as reasonably achievable (ALARA). [facility]: Dose Right [facility]: CareDose [facility]: Dose Right [facility]: Teradose 4D [facility]: [employer] RADIATION DOSE: CT Rad equipment meets quality standard of care and radiation dose reduction techniq ues were employed. CTDIvol: 10.0 - 11.9 mGy. DLP: 2302 mGy-cm. . LIMITATIONS: None. FINDINGS: CHEST: LUNGS AND PLEURA: Bandlike scarring is present along the posterior left upper lobe staple line, 2.3 x 1 cm in size. This is stable over multiple previous exams. Patient is post right middle lobe resection with surgical michael at the right hilum. Upper lobes are hyperlucent from obstructive disease. No new worrisome pulmonary nodules. No pleura l effusion or pneumothorax. No acute infiltrates. HILAR AND MEDIASTINAL STRUCTURES: No identified masses or abnormal nodes. HEART AND VASCULAR STRUCTURES: No aortic dissection. Stable ectasia ascending thoracic aorta 4 cm in diameter. No central pulmonary emboli. No pericardial effusion. Calcified coronary arteries HARDWARE: Left-sided permanent central line tip superior vena cava THYROID AND OTHER SOFT TISSUES: Stable thyromegaly. Small hiatal hernia BONES: Old right rib post thoracotomy changes OTHER: No other significant finding. ABDOMEN AND PELVIS: LIVER: Normal size. No masses. No dilated ducts. SPLEEN: Normal size. No focal lesions. PANCREAS: No masses. No significant calcifications. No adjacent inflammation or peripancreatic fluid collections. Pancreatic duct not dilated. GALLBLADDER: Gallstones. No inflammatory changes to suggest cholecystitis. ADRENAL GLANDS: No significant masses or asymmetry. RIGHT KIDNEY AND URETER: No solid masses. 12 mm right midpole renal cortical cyst. No significant c alcification. No hydronephrosis or hydroureter. LEFT KIDNEY AND URETER: No solid masses. 12 mm left midpole renal cortical cyst. No significant dusty cification. No hydronephrosis or hydroureter. AORTA AND VESSELS: Infrarenal abdominal aorta normal caliber. 3 cm right proximal common iliac arter y aneurysm axial image 56 RETROPERITONEUM: No retroperitoneal adenopathy, hemorrhage or masses. BOWEL AND PERITONEAL CAVITY: No masses or inflammatory changes. No free fluid or peritoneal masses. No CT evidence of bowel obstruction. APPENDIX: Normal. ABDOMINAL WALL: Intact right inguinal hernia repair PELVIS: No mass or free fluid. Normal bladder. BONES: No significant or acute findings. OTHER: No other significant finding. IMPRESSION: Stable post therapeutic changes in the chest Stable ectasia ascending thoracic aorta, stable 3 cm right common iliac artery aneurysm. NORMAL CT OF THE ABDOMEN AND PELVIS WITH ORAL AND INTRAVENOUS CONTRAST. TECHNICAL DOCUMENTATION: JOB ID: [id number] Quality ID # 436: Final reports with documentation of one or more dose reduction techniques (e.g., Au tomated exposure control, adjustment of the mA and/or kV according to patient size, use of iterative reconstruction technique) 2010 [employer]- All Rights Reserved Reading location - IP/workstation name: [email or web address]
== END ==
LOC: RAD 10:19
PROVIDERS: ATTEND Internal Medicine
DX: C34.11 Malignant neoplasm of upper lobe, right bronchus or lung (principal)
CPT/HCPCS: 71260; 74177

== ENCOUNTER → 2019-04-17 | Outpatient (CLI) | payer MEDICARE, OTHER ==
--- NOTE | 2019-04-17 08:59 | RADIOLOGY REPORT (SQ) ---
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 Images reviewed with lung, soft tissue and bone windows. Reconstructed coronal a nd sagittal MPR images reviewed. All images stored on PACS. All CT scanners at this facility use dose modulation, iterative reconstruction, and/or weight based d osing when appropriate to reduce radiation dose to as low as reasonably achievable (ALARA). [facility]: Dose Right [facility]: CareDose [facility]: Dose Right [facility]: Teradose 4D [facility]: [employer] RADIATION DOSE: CT Rad equipment meets quality standard of care and radiation dose reduction techniq ues were employed. CTDIvol: 11.9 - 13.4 mGy. DLP: 1917 mGy-cm. . LIMITATIONS: None. FINDINGS: AXILLAE: No adenopathy. CHEST WALL: No masses. No subcutaneous air. LUNGS: Overall there has been improvement since prior study. The largest nodule along the fissure in the left upper lobe is measured at 9.5 x 19.4 mm previously this measured 11.0 mm x 23.4 mm. Other parenchymal opacities in the right upper lobe and right middle lobe are grossly stable. No new nodul es. No focal consolidation. PLEURA: No effusions. No calcifications. THYROID: The thyroid lobes are enlarged bilaterally with multiple nodules. HILAR AND MEDIASTINAL STRUCTURES: There are small scattered mediastinal nodes. AORTA AND GREAT VESSELS: Stable in appearance. Ascending aorta measures up to 4.1 mm in greatest ora meter. PULMONARY ARTERIES: No identified pulmonary emboli. Study not optimized for the pulmonary arteries. HEART: No pericardial effusion. HARDWARE AND LIFELINES: None. BONES: No significant finding. OTHER: No other significant finding. IMPRESSION: Largest nodule in the left upper lobe along the fissure has decreased in size as describ ed. No new findings. COMPARISON: None. RADIATION DOSE: CT Rad equipment meets quality standard of care and radiation dose reduction techniq ues were employed. CTDIvol: 11.9 - 13.4 mGy. DLP: 1917 mGy-cm. mGy. TECHNIQUE: CT scan of the abdomen and pelvis performed with intravenous and oral contrast using gabriela dusty scanning technique with dynamic intravenous contrast injection. Images reviewed with lung, soft tissue and bone windows. Reconstructed coronal and sagittal MPR images reviewed. Delayed images for evaluation of the urinary system also acquired and evaluated. All images stored on PACS. All CT scanners at this facility use dose modulation, iterative reconstruction, and/or weight based d osing when appropriate to reduce radiation dose to as low as reasonably achievable (ALARA). [facility]: Dose Right [facility]: [employer] [facility]: Dose Right [facility]: Teradose 4D [facility]: [employer] FINDINGS: LIVER: Normal size. No masses. No dilated ducts. SPLEEN: Normal size. No focal lesions. PANCREAS: No masses. No significant calcifications. No adjacent inflammation or peripancreatic flui d collections. Pancreatic duct not dilated. GALLBLADDER: Small layering stones. ADRENAL GLANDS: No significant masses or asymmetry. RIGHT KIDNEY AND URETER: Small cortical cysts. No significant calcifications. No hydronephrosis o r hydroureter. LEFT KIDNEY AND URETER: Small cortical cysts. No significant calcifications. No hydronephrosis or hydroureter. AORTA AND VESSELS: Aorta demonstrates atherosclerotic change. No aneurysm or dissection. There is a 3.3 cm right common iliac artery aneurysm. There is mural thrombus the located anteriorly. This is unchanged from prior study. RETROPERITONEUM: No retroperitoneal adenopathy, hemorrhage or masses. LARGE AND SMALL BOWEL: No dilatation. No masses. No wall thickening. APPENDIX: Normal. ABDOMINAL WALL: No hernia or masses. PERITONEAL CAVITY: No free air. No free fluid. No peritoneal implants or masses. PELVIS: No mass or free fluid. Normal bladder. BONES: No significant or acute findings. OTHER: No other significant finding. IMPRESSION: Stable 3.3 cm right common iliac artery aneurysm. No evidence of metastatic disease in the abdomen or pelvis. TECHNICAL DOCUMENTATION: JOB ID: [id number] Quality ID # 436: Final reports with documentation of one or more dose reduction techniques (e.g., Au tomated exposure control, adjustment of the mA and/or kV according to patient size, use of iterative reconstruction technique) 2010 [employer]- All Rights Reserved Reading location - IP/workstation name: [email or web address]
--- NOTE | 2019-04-17 13:34 | RADIOLOGY REPORT (SQ) ---
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 The route of agent administration: Intravenous. ADDITIONAL DRUGS AND DOSES: None. TECHNIQUE: Routine delayed images at 3 hour post radionuclide injection acquired of the bony skeleto n including anterior and posterior whole-body projections and additional focused images as needed. LIMITATIONS: None. FINDINGS: BONES: Persistent uptake in a right anterolateral rib consistent with thoracotomy defect. No evidence of metastatic disease. KIDNEYS: Symmetric excretion without obstruction. OTHER: No other significant finding. IMPRESSION: Stable whole-body bone scan. Postsurgical changes in the right chest wall. No evidence of metastatic disease. COMMENT: Quality measure 147: Current bone scan is compared with any available plain radiographs, p rior bone scans, and CT/MRI. TECHNICAL DOCUMENTATION: JOB ID: [id number] [employer]- All Rights Reserved Reading location - IP/workstation name: [email or web address]
== END ==
LOC: RAD 07:37
PROVIDERS: ATTEND Internal Medicine
DX: C34.11 Malignant neoplasm of upper lobe, right bronchus or lung (principal); C79.51 Secondary malignant neoplasm of bone; I72.3 Aneurysm of iliac artery
CPT/HCPCS: 82565; 78306; 71260; 74177; A9561; Q9969

== ENCOUNTER 2019-05-03 10:33 | Day surgery (SDC) | payer MEDICARE, OTHER ==
[~2019-05-03 10:33] MED LIST changes: -CEFAZOLIN 1 GM/D5W RTU 1 GM/50 ML RTUPB IV PRN; +CHONDR SU A NA/HYALUR INTRAOC KIT (SURGICARE) ONE; -DEXTROSE 5%-1/2 NORMAL SALINE 1,000 ML IV PRN; -DIAZEPAM 5 MG TABLET PO PRN; +EPINEPHRINE INJ/PF 1 MG/1 ML AMPULE ONE; +KETOROLAC TROMETHAMINE 0.45% 4 DROP/0.4 ML DROPERETTE OS PRN; +LIDOCAINE 1%/PHENYLEPHRINE 1.5% 1 ML VIAL ONE; -OXYCODONE-ACETAMINOPHEN 5-325 MG TABLET PO PRN; +TRYPAN BLUE 0.06 % OPH SOLN 0.5 ML DISP.SYRIN ONE
[2019-05-03] MEDS: TETRACAINE HCL 0.5% OPH SOLN 4 ML OS PRN ×3 (11:38→12:13)
[2019-05-03] MEDS: CYCLOPENTOLATE 0.2%/PHENYLEPHRINE 1% OPH SOLN 2 ML OS PRN ×3 (11:38→11:58)
[2019-05-03] MEDS: BESIFLOXACIN HCL 0.6% OPH SUSP 5 ML BOTTLE OS PRN ×4 (11:38→12:35)
[2019-05-03] MEDS: TROPICAMIDE 1% OPH SOLN 15 ML OS PRN ×3 (11:38→11:58)
[2019-05-03] MEDS ORDERED: MIDAZOLAM 2 MG/2 ML INJ ONE (12:00)
[2019-05-03] MEDS: DORZOLAMIDE HCL 2%/TIMOLOL MALEAT 0.5% OPH SOLN 10 ML OS PRN ×2 (12:35)
--- NOTE | 2019-05-04 12:55 | Operative Report ---
Operative Report-[facility] Operative Report: DATE OF SURGERY: [05/03/2019] PREOPERATIVE DIAGNOSIS: Cataracts, left eye POSTOPERATIVE DIAGNOSIS: Cataract, left eye OPERATION: Cataract extraction with insertion of an IOL of the left eye. Intraocular Lens Model: [17.0 sn60wf] reason for surgery is difficulty seeing road signs SURGEON: Tai Naqvi MD ANESTHESIA: Topical PROCEDURE: After obtaining appropriate consent, the patient's left eye was prepped and draped in a sterile fashion as well as the surgeon in the sterile manner and cataract surgery was started. First a paracentesis blade was used to make a side-port incision. Viscoelastic was used to inflate the anterior chamber. Next a 2.4 mm incision was made with a 2.4 mm blade, clear corneal temporarily. A continuous capsulorrhexis was made using a cystotome and Utrata forceps. Following this hydrodissection was carried out to make commands fully loose and mobile and it was rotated 90 degrees. Following this, a divide and conquer technique was used to phacoemulsify the lens. The remaining cortex was removed with an irrigation/aspiration. Provisc was instilled into the capsular bag to inflate the bag.The intracular lens was placed. The remaining viscoelastic material was removed with irrigation/aspiration. Following this, the incision was found to be watertight. Besivance and Cosopt was instilled into the eye and a protective shield was placed over the eye. The patient was turned to the postoperative recovery in a stable condition.
== END 2019-05-03 13:15 | disposition home or self-care (01) ==
LOC: SC 10:33
PROVIDERS: ATTEND Internal Medicine
DX: H25.89 Other age-related cataract (principal); Z87.891 Personal history of nicotine dependence; I10 Essential (primary) hypertension; Z79.82 Long term (current) use of aspirin; Z79.899 Other long term (current) drug therapy; H40.013 Open angle with borderline findings, low risk, bilateral; D31.31 Benign neoplasm of right choroid; H31.091 Other chorioretinal scars, right eye; H43.811 Vitreous degeneration, right eye; H04.123 Dry eye syndrome of bilateral lacrimal glands
CPT/HCPCS: 00142; 66984; V2632; J2250; J3490 ×2; A9270; J0171; J2370; 142

== ENCOUNTER → 2019-07-11 | Outpatient (CLI) | payer MEDICARE, OTHER ==
--- NOTE | 2019-07-11 13:00 | RADIOLOGY REPORT (SQ) ---
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 Images reviewed with lung, soft tissue and bone windows. Reconstructed coronal and sagittal MPR and MIP images reviewed. All images stored on PACS. All CT scanners at this facility use dose modulation, iterative reconstruction, and/or weight based d osing when appropriate to reduce radiation dose to as low as reasonably achievable (ALARA). [facility]: Dose Right [facility]: CareDose [facility]: Dose Right [facility]: Teradose 4D [facility]: [employer] CONTRAST TYPE AND DOSE: Omnipaque 350 100 cc RENAL FUNCTION: Creatinine 1.1 RADIATION DOSE: CT Rad equipment meets quality standard of care and radiation dose reduction techniq ues were employed. CTDIvol: 12.4 - 13.3 mGy. DLP: 1873 mGy-cm. . LIMITATIONS: None. FINDINGS: LUNGS AND PLEURA: Stable surgical change and nodular opacity within the left upper lobe al finn the major fissure measuring approximately 20 x 10 mm. No new discrete nodules or masses. No ple ural effusion or pneumothorax. HILAR AND MEDIASTINAL STRUCTURES: Stable precarinal node measuring 11 mm in short axis (series 6, pratibha ge 40) no new discrete mediastinal, hilar or axillary adenopathy. HEART AND VASCULAR STRUCTURES: No aneurysm or dissection. No central pulmonary embolus. Scattered c oronary atherosclerosis. No significant pericardial effusion. HARDWARE: Left-sided chest port with catheter tip at the cavoatrial junction. UPPER ABDOMEN: See separate report of the CT of the abdomen. THYROID AND OTHER SOFT TISSUES: Enlarged heterogeneous thyroid with a a 2 cm left lower pole nodule, stable. BONES: No acute bony abnormality. Unchanged chronic fracture and lytic changes within the right 7th rib. No new lytic or blastic osseous lesion. OTHER: No other significant finding. IMPRESSION: 1. Stable left upper lobe nodular opacity. No new discrete nodules or masses. 2. No evidence of acute intrathoracic disease. 3. Stable heterogeneous thyroid and 2 cm left lower pole nodule. 4. Please see same-day abdomen CT for findings below the diaphragm. TECHNICAL DOCUMENTATION: JOB ID: [id number] Quality ID # 436: Final reports with documentation of one or more dose reduction techniques (e.g., Au tomated exposure control, adjustment of the mA and/or kV according to patient size, use of iterative reconstruction technique) 2010 [employer]- All Rights Reserved Reading location - IP/workstation name: [email or web address]
--- NOTE | 2019-07-11 13:06 | RADIOLOGY REPORT (SQ) ---
EXAM DESCRIPTION: CT ABD/PELVIS WITH IV ONLY COMPLETED DATE/TIME: 07/11/2019 8:20 am REASON FOR STUDY: LUNG CANCER C34.11 MALIGNANT NEOPLASM OF UPPER LOBE, RIGHT BRONCHUS OR L COMPARISON: 04/17/2019 TECHNIQUE: CT scan of the abdomen and pelvis performed using helical scanning technique with dynamic intravenous contrast injection. No oral contrast. Images reviewed with lung, soft tissue, and bone windows. Reconstructed coronal and sagittal MPR images reviewed. Delayed images for evaluation of the urinary system also acquired. All images stored on PACS. All CT scanners at this facility use dose modulation, iterative reconstruction, and/or weight based d osing when appropriate to reduce radiation dose to as low as reasonably achievable (ALARA). [facility]: Dose Right [facility]: CareDose [facility]: Dose Right [facility]: Teradose 4D [facility]: [employer] CONTRAST TYPE AND DOSE: contrast/concentration: Isovue 350.00 mg/ml; Total Contrast Delivered: 100.0 ml; Total Saline Delivered: 72.0 ml RENAL FUNCTION: See chest RADIATION DOSE: . LIMITATIONS: None. FINDINGS: LOWER CHEST: See separate report of the CT of the chest. LIVER: Normal size. No masses. No dilated ducts. SPLEEN: Normal size. No focal lesions. PANCREAS: No masses. No significant calcifications. No adjacent inflammation or peripancreatic fluid collections. Pancreatic duct not dilated. GALLBLADDER: Gallstones. No inflammatory changes to suggest cholecystitis. ADRENAL GLANDS: No significant masses or asymmetry. RIGHT KIDNEY AND URETER: No solid masses. Stable cyst. No significant calcifications. No hydronep hrosis or hydroureter. LEFT KIDNEY AND URETER: No solid masses. Stable exophytic cyst. No significant calcifications. No hydronephrosis or hydroureter. AORTA AND VESSELS: Aortoiliac atherosclerosis. Unchanged aneurysmal dilation and mural thrombus at t he proximal right common iliac artery measuring up to 3.0 cm (coronal image 59). Celiac, SMA, renals and MORGAN are well opacified. RETROPERITONEUM: No retroperitoneal adenopathy, hemorrhage or masses. BOWEL AND PERITONEAL CAVITY: No masses or inflammatory changes. No free fluid or peritoneal masses. APPENDIX: Normal. PELVIS: Unremarkable urinary bladder. Status post prostatectomy. No free fluid or adenopathy. ABDOMINAL WALL: No masses. Evidence of right inguinal hernia repair. BONES: No acute bony abnormality. No discrete lytic or blastic osseous lesions. Lower lumbar facet arthropathy. OTHER: No other significant finding. IMPRESSION: 1. No evidence of metastatic disease within the abdomen or pelvis. 2. 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 TECHNICAL DOCUMENTATION: JOB ID: [id number] Quality ID # 436: Final reports with documentation of one or more dose reduction techniques (e.g., Au tomated exposure control, adjustment of the mA and/or kV according to patient size, use of iterative reconstruction technique) 2010 [employer]- All Rights Reserved Reading location - IP/workstation name: [email or web address]
--- NOTE | 2019-07-11 13:28 | RADIOLOGY REPORT (SQ) ---
EXAM DESCRIPTION: NM WHOLE BODY BONE SCAN COMPLETED DATE/TIME: 07/11/2019 11:53 am REASON FOR STUDY: LUNG CA C34.11 MALIGNANT NEOPLASM OF UPPER LOBE, RIGHT BRONCHUS OR L COMPARISON: PET-CT 01/08/2018, 08/28/2017 Whole-body bone scan 10/30/2018, 04/17/2019 CT chest abdomen pelvis 07/11/2019 RADIONUCLIDE AND DOSE: 22 millicuries Tc99m MDP. The route of agent administration: Intravenous. ADDITIONAL DRUGS AND DOSES: None. TECHNIQUE: Routine delayed images at 3 hours post radionuclide injection acquired of the bony skelet on including anterior and posterior whole-body projections and additional focused images as needed. LIMITATIONS: None. FINDINGS: BONES: Normal visualization without areas of photopenia or increased bony uptake of radiop harmaceutical. KIDNEYS: Symmetric excretion without obstruction. OTHER: No other significant finding. IMPRESSION: NORMAL BONE SCAN. COMMENT: Quality measure 147: Current bone scan is compared with any available plain radiographs, p rior bone scans, and CT/MRI. TECHNICAL DOCUMENTATION: JOB ID: [id number] [employer]- All Rights Reserved Reading location - IP/workstation name: [email or web address]
== END ==
LOC: RAD 07:57
PROVIDERS: ATTEND Physician Assistant Medical
DX: C34.11 Malignant neoplasm of upper lobe, right bronchus or lung (principal)
CPT/HCPCS: 82565; 78306; 71260; 74177; A9561; Q9969

== ENCOUNTER → 2019-10-09 | Outpatient (CLI) | payer MEDICARE, OTHER ==
--- NOTE | 2019-10-09 12:57 | RADIOLOGY REPORT (SQ) ---
EXAM DESCRIPTION: CT CHEST WITH; CT ABD/PELVIS WITH IV ONLY COMPLETED DATE/TIME: 10/09/2019 8:26 am; 10/09/2019 8:28 am REASON FOR STUDY: LUNG CA (C34.11) C34.11 MALIGNANT NEOPLASM OF UPPER LOBE, RIGHT BRONCHUS OR L CONTRAST TYPE AND DOSE: contrast/concentration: Isovue 350.00 mg/ml; Total Contrast Delivered: 100.0 ml; Total Saline Delivered: 72.0 ml RENAL FUNCTION: BUN 10 creatinine 0.8 COMPARISON: 07/11/2019 TECHNIQUE: CT scan of the chest performed using helical scanning technique with dynamic intravenous contrast injection. Images reviewed with lung, soft tissue and bone windows. Reconstructed coronal a nd sagittal MPR images reviewed. All images stored on PACS. All CT scanners at this facility use dose modulation, iterative reconstruction, and/or weight based d osing when appropriate to reduce radiation dose to as low as reasonably achievable (ALARA). [facility]: Dose Right [facility]: CareDose [facility]: Dose Right [facility]: Teradose 4D [facility]: RSI ([employer] RADIATION DOSE: CT Rad equipment meets quality standard of care and radiation dose reduction techniq ues were employed. CTDIvol: 12.6 - 14.2 mGy. DLP: 2072 mGy-cm. . LIMITATIONS: None. FINDINGS: AXILLAE: No adenopathy. CHEST WALL: No masses. No subcutaneous air. LUNGS: There is a 12.9 x 8.8 mm nodule in the left upper lobe on image 42. This is more prominent. Centrilobular emphysematous changes are present. Pleural/parenchymal scarring is seen in the right l sherrie. PLEURA: No effusions. Pleural/ parenchymal scarring. THYROID: The thyroid is quite heterogeneous and enlarged. There is a large low-density lesion in the left lobe of the gland. HILAR AND MEDIASTINAL STRUCTURES: No identified masses or abnormal nodes. AORTA AND GREAT VESSELS: No aneurysm. No dissection. PULMONARY ARTERIES: No identified pulmonary emboli. Study not optimized for the pulmonary arteries. HEART: No pericardial effusion. HARDWARE AND LIFELINES: None. BONES: No significant finding. OTHER: No other significant finding. IMPRESSION: Left upper lobe pulmonary nodule appears more prominent. Pleural/parenchymal changes on the right that are new. COMPARISON: None. RADIATION DOSE: CT Rad equipment meets quality standard of care and radiation dose reduction techniq ues were employed. CTDIvol: 12.6 - 14.2 mGy. DLP: 2072 mGy-cm. mGy. TECHNIQUE: CT scan of the abdomen and pelvis performed with intravenous and oral contrast using gabriela dusty scanning technique with dynamic intravenous contrast injection. Images reviewed with lung, soft tissue and bone windows. Reconstructed coronal and sagittal MPR images reviewed. Delayed images for evaluation of the urinary system also acquired and evaluated. All images stored on PACS. All CT scanners at this facility use dose modulation, iterative reconstruction, and/or weight based d osing when appropriate to reduce radiation dose to as low as reasonably achievable (ALARA). [facility]: Dose Right [facility]: SureCare [facility]: Dose Right [facility]: Teradose 4D [facility]: Smart [employer] FINDINGS: LIVER: Normal size. No masses. No dilated ducts. SPLEEN: Normal size. No focal lesions. PANCREAS: No masses. No significant calcifications. No adjacent inflammation or peripancreatic flui d collections. Pancreatic duct not dilated. GALLBLADDER: No identified stones by CT criteria. No inflammatory changes to suggest cholecystitis. ADRENAL GLANDS: No significant masses or asymmetry. RIGHT KIDNEY AND URETER: No solid masses. No significant calcifications. No hydronephrosis or hyd roureter. LEFT KIDNEY AND URETER: No solid masses. No significant calcifications. No hydronephrosis or hydr oureter. AORTA AND VESSELS: No aortic aneurysm. There is a stable 3 cm aneurysm of the right common iliac art gavino. RETROPERITONEUM: No retroperitoneal adenopathy, hemorrhage or masses. LARGE AND SMALL BOWEL: No dilatation. No masses. No wall thickening. APPENDIX: Normal. ABDOMINAL WALL: No hernia or masses. PERITONEAL CAVITY: No free air. No free fluid. No peritoneal implants or masses. PELVIS: No mass or free fluid. Normal bladder. BONES: No significant or acute findings. OTHER: No other significant finding. IMPRESSION: There is no evidence of metastatic disease in the abdomen or pelvis. Stable 3 cm aneury sm of the right common iliac artery. TECHNICAL DOCUMENTATION: JOB ID: [id number] Quality ID # 436: Final reports with documentation of one or more dose reduction techniques (e.g., Au tomated exposure control, adjustment of the mA and/or kV according to patient size, use of iterative reconstruction technique) 2010 [employer]- All Rights Reserved Reading location - IP/workstation name: [email or web address]
--- NOTE | 2019-10-09 12:57 | RADIOLOGY REPORT (SQ) ---
EXAM DESCRIPTION: CT CHEST WITH; CT ABD/PELVIS WITH IV ONLY COMPLETED DATE/TIME: 10/09/2019 8:26 am; 10/09/2019 8:28 am REASON FOR STUDY: LUNG CA (C34.11) C34.11 MALIGNANT NEOPLASM OF UPPER LOBE, RIGHT BRONCHUS OR L CONTRAST TYPE AND DOSE: contrast/concentration: Isovue 350.00 mg/ml; Total Contrast Delivered: 100.0 ml; Total Saline Delivered: 72.0 ml RENAL FUNCTION: BUN 10 creatinine 0.8 COMPARISON: 07/11/2019 TECHNIQUE: CT scan of the chest performed using helical scanning technique with dynamic intravenous contrast injection. Images reviewed with lung, soft tissue and bone windows. Reconstructed coronal a nd sagittal MPR images reviewed. All images stored on PACS. All CT scanners at this facility use dose modulation, iterative reconstruction, and/or weight based d osing when appropriate to reduce radiation dose to as low as reasonably achievable (ALARA). [facility]: Dose Right [facility]: CareDose [facility]: Dose Right [facility]: Teradose 4D [facility]: [employer] RADIATION DOSE: CT Rad equipment meets quality standard of care and radiation dose reduction techniq ues were employed. CTDIvol: 12.6 - 14.2 mGy. DLP: 2072 mGy-cm. . LIMITATIONS: None. FINDINGS: AXILLAE: No adenopathy. CHEST WALL: No masses. No subcutaneous air. LUNGS: There is a 12.9 x 8.8 mm nodule in the left upper lobe on image 42. This is more prominent. Centrilobular emphysematous changes are present. Pleural/parenchymal scarring is seen in the right l sherrie. PLEURA: No effusions. Pleural/ parenchymal scarring. THYROID: The thyroid is quite heterogeneous and enlarged. There is a large low-density lesion in the left lobe of the gland. HILAR AND MEDIASTINAL STRUCTURES: No identified masses or abnormal nodes. AORTA AND GREAT VESSELS: No aneurysm. No dissection. PULMONARY ARTERIES: No identified pulmonary emboli. Study not optimized for the pulmonary arteries. HEART: No pericardial effusion. HARDWARE AND LIFELINES: None. BONES: No significant finding. OTHER: No other significant finding. IMPRESSION: Left upper lobe pulmonary nodule appears more prominent. Pleural/parenchymal changes on the right that are new. COMPARISON: None. RADIATION DOSE: CT Rad equipment meets quality standard of care and radiation dose reduction techniq ues were employed. CTDIvol: 12.6 - 14.2 mGy. DLP: 2072 mGy-cm. mGy. TECHNIQUE: CT scan of the abdomen and pelvis performed with intravenous and oral contrast using gabriela dusty scanning technique with dynamic intravenous contrast injection. Images reviewed with lung, soft tissue and bone windows. Reconstructed coronal and sagittal MPR images reviewed. Delayed images for evaluation of the urinary system also acquired and evaluated. All images stored on PACS. All CT scanners at this facility use dose modulation, iterative reconstruction, and/or weight based d osing when appropriate to reduce radiation dose to as low as reasonably achievable (ALARA). [facility]: Dose Right [facility]: SureCare [facility]: Dose Right [facility]: Teradose 4D [facility]: Smart [employer] FINDINGS: LIVER: Normal size. No masses. No dilated ducts. SPLEEN: Normal size. No focal lesions. PANCREAS: No masses. No significant calcifications. No adjacent inflammation or peripancreatic flui d collections. Pancreatic duct not dilated. GALLBLADDER: No identified stones by CT criteria. No inflammatory changes to suggest cholecystitis. ADRENAL GLANDS: No significant masses or asymmetry. RIGHT KIDNEY AND URETER: No solid masses. No significant calcifications. No hydronephrosis or hyd roureter. LEFT KIDNEY AND URETER: No solid masses. No significant calcifications. No hydronephrosis or hydr oureter. AORTA AND VESSELS: No aortic aneurysm. There is a stable 3 cm aneurysm of the right common iliac art gavino. RETROPERITONEUM: No retroperitoneal adenopathy, hemorrhage or masses. LARGE AND SMALL BOWEL: No dilatation. No masses. No wall thickening. APPENDIX: Normal. ABDOMINAL WALL: No hernia or masses. PERITONEAL CAVITY: No free air. No free fluid. No peritoneal implants or masses. PELVIS: No mass or free fluid. Normal bladder. BONES: No significant or acute findings. OTHER: No other significant finding. IMPRESSION: There is no evidence of metastatic disease in the abdomen or pelvis. Stable 3 cm aneury sm of the right common iliac artery. TECHNICAL DOCUMENTATION: JOB ID: [id number] Quality ID # 436: Final reports with documentation of one or more dose reduction techniques (e.g., Au tomated exposure control, adjustment of the mA and/or kV according to patient size, use of iterative reconstruction technique) 2010 [employer]- All Rights Reserved Reading location - IP/workstation name: [email or web address]
--- NOTE | 2019-10-09 13:54 | RADIOLOGY REPORT (SQ) ---
EXAM DESCRIPTION: NM WHOLE BODY BONE SCAN COMPLETED DATE/TIME: 10/09/2019 12:12 pm REASON FOR STUDY: LUNG CA (C34.11) C34.11 MALIGNANT NEOPLASM OF UPPER LOBE, RIGHT BRONCHUS OR L COMPARISON: 07/11/2019 RADIONUCLIDE AND DOSE: 20 millicuries Tc99m HDP. The route of agent administration: Intravenous. ADDITIONAL DRUGS AND DOSES: None. TECHNIQUE: Routine delayed images at 3 hours post radionuclide injection acquired of the bony skelet on including anterior and posterior whole-body projections and additional focused images as needed. LIMITATIONS: None. FINDINGS: BONES: There is a small focus of activity in the right side of the calvarium. There is in creased uptake in the posterior right 7th rib. There is increased activity in the mid left humerus. KIDNEYS: Symmetric excretion without obstruction. OTHER: No other significant finding. IMPRESSION: There are areas of increased activity in the right side of the calvarium and in the post erior right 7th rib that are present on prior studies. There is increased activity in the mid left h umerus that is not included on the prior studies. Cannot exclude metastatic disease to bone. COMMENT: Quality measure 147: Current bone scan is compared with any available plain radiographs, p rior bone scans, and CT/MRI. TECHNICAL DOCUMENTATION: JOB ID: [id number] 2010 [employer]- All Rights Reserved Reading location - IP/workstation name: [email or web address]
== END ==
LOC: RAD 07:47
PROVIDERS: ATTEND Internal Medicine Hematology & Oncology
DX: C34.11 Malignant neoplasm of upper lobe, right bronchus or lung (principal)
CPT/HCPCS: 78306; 71260; 74177; A9561; Q9969

== ENCOUNTER → 2019-12-27 | Outpatient (CLI) | payer MEDICARE, OTHER ==
--- NOTE | 2019-12-27 12:49 | RADIOLOGY REPORT (SQ) ---
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 Images reviewed with lung, soft tissue and bone windows. Reconstructed coronal a nd sagittal MPR images reviewed. All images stored on PACS. All CT scanners at this facility use dose modulation, iterative reconstruction, and/or weight based d osing when appropriate to reduce radiation dose to as low as reasonably achievable (ALARA). [facility]: Dose Right [facility]: CareDose [facility]: Dose Right [facility]: Teradose 4D [facility]: Smart [employer] RADIATION DOSE: CT Rad equipment meets quality standard of care and radiation dose reduction techniq ues were employed. CTDIvol: 9.4 - 11.1 mGy. DLP: 1530 mGy-cm. . LIMITATIONS: None. FINDINGS: AXILLAE: No adenopathy. CHEST WALL: No masses. No subcutaneous air. LUNGS: Left upper lobe pulmonary nodule is minimally smaller, measuring 12.4 x 8.5 mm. Centrilobular emphysema is present in the upper lobes. There is mild pleural/ parenchymal scarring in the right l sherrie. PLEURA: No effusions. No calcifications. THYROID: Thyroid is quite heterogeneous. There is a large low-density lesion in the left lobe of the gland. HILAR AND MEDIASTINAL STRUCTURES: No identified masses or abnormal nodes. AORTA AND GREAT VESSELS: No aneurysm. No dissection. PULMONARY ARTERIES: No identified pulmonary emboli. Study not optimized for the pulmonary arteries. HEART: No pericardial effusion. Coronary artery calcifications are present. HARDWARE AND LIFELINES: Injection port on the left. BONES: No significant finding. OTHER: No other significant finding. IMPRESSION: Left upper lobe pulmonary nodule is slightly smaller. Mild centrilobular emphysema. He terogeneous thyroid with a large low-density lesion in the left lobe. Recommend thyroid ultrasound w ith possible biopsy. COMPARISON: 10/09/2019 RADIATION DOSE: CT Rad equipment meets quality standard of care and radiation dose reduction techniq ues were employed. CTDIvol: 9.4 - 11.1 mGy. DLP: 1530 mGy-cm. mGy. TECHNIQUE: CT scan of the abdomen and pelvis performed with intravenous and oral contrast using gabriela dusty scanning technique with dynamic intravenous contrast injection. Images reviewed with lung, soft tissue and bone windows. Reconstructed coronal and sagittal MPR images reviewed. Delayed images for evaluation of the urinary system also acquired and evaluated. All images stored on PACS. All CT scanners at this facility use dose modulation, iterative reconstruction, and/or weight based d osing when appropriate to reduce radiation dose to as low as reasonably achievable (ALARA). [facility]: Dose Right [facility]: [employer] [facility]: Dose Right [facility]: Teradose 4D [facility]: [employer] FINDINGS: LIVER: Normal size. No masses. No dilated ducts. SPLEEN: Normal size. No focal lesions. PANCREAS: No masses. No significant calcifications. No adjacent inflammation or peripancreatic flui d collections. Pancreatic duct not dilated. GALLBLADDER: No identified stones by CT criteria. No inflammatory changes to suggest cholecystitis. ADRENAL GLANDS: No significant masses or asymmetry. RIGHT KIDNEY AND URETER: No solid masses. No significant calcifications. No hydronephrosis or hyd roureter. LEFT KIDNEY AND URETER: No solid masses. No significant calcifications. No hydronephrosis or hydr oureter. AORTA AND VESSELS: No aortic aneurysm. 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 RETROPERITONEUM: No retroperitoneal adenopathy, hemorrhage or masses. LARGE AND SMALL BOWEL: No dilatation. No masses. No wall thickening. APPENDIX: Normal. ABDOMINAL WALL: No hernia or masses. PERITONEAL CAVITY: No free air. No free fluid. No peritoneal implants or masses. PELVIS: No mass or free fluid. Normal bladder. BONES: No significant or acute findings. OTHER: No other significant finding. IMPRESSION: There is no evidence of metastatic disease in the abdomen or pelvis. 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 TECHNICAL DOCUMENTATION: JOB ID: [id number] Quality ID # 436: Final reports with documentation of one or more dose reduction techniques (e.g., Au tomated exposure control, adjustment of the mA and/or kV according to patient size, use of iterative reconstruction technique) 2010 [employer]- All Rights Reserved Reading location - IP/workstation name: [email or web address]
--- NOTE | 2019-12-27 15:50 | RADIOLOGY REPORT (SQ) ---
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 The route of agent administration: Intravenous. ADDITIONAL DRUGS AND DOSES: None. TECHNIQUE: Routine delayed images at 3 hours post radionuclide injection acquired of the bony skelet on including anterior and posterior whole-body projections and additional focused images as needed. LIMITATIONS: None. FINDINGS: BONES: There is a small area of increased activity in the right side of the calvarium. Th ere is increased uptake in the posterior right 7th rib versus tip of the right scapula. There is mil d increased uptake in the posterior left 7th rib. There is uptake in the mid left humerus. No new l esion is seen. KIDNEYS: Symmetric excretion without obstruction. OTHER: No other significant finding. IMPRESSION: Metastatic disease to bone. COMMENT: Quality measure 147: Current bone scan is compared with any available plain radiographs, p rior bone scans, and CT/MRI. TECHNICAL DOCUMENTATION: JOB ID: [id number] 2010 [employer]- All Rights Reserved Reading location - IP/workstation name: [email or web address]
== END ==
LOC: RAD 08:06
PROVIDERS: ATTEND Physician Assistant Medical
DX: C34.11 Malignant neoplasm of upper lobe, right bronchus or lung (principal); C79.51 Secondary malignant neoplasm of bone
CPT/HCPCS: 82565; 78306; 71260; 74177; A9561; Q9969

== ENCOUNTER → 2020-01-08 | Outpatient (CLI) | payer MEDICARE, OTHER ==
--- NOTE | 2020-01-08 15:38 | RADIOLOGY REPORT (SQ) ---
EXAM DESCRIPTION: U/S THYROID/SFT TISS HD NECK IMAGES COMPLETED DATE/TIME: 01/08/2020 3:02 pm REASON FOR STUDY: E04.1 NONTOXIC SINGLE THYROID NODULE C34.11 MALIGNANT NEOPLASM OF UPPER LOBE, RIG HT BRONCHUS OR L E04.1 NONTOXIC SINGLE THYROID NODULE COMPARISON: None. TECHNIQUE: Dynamic and static ruiz-scale images acquired of the thyroid gland. Selected additional c olor/power Doppler images recorded. All images stored to PACS. LIMITATIONS: None. FINDINGS: RIGHT LOBE: Mildly enlarged. Heterogeneous echotexture. Dominant heterogeneous solid nod ule measuring 4.0 x 2.8 x 3.1 cm. LEFT LOBE: Enlarged. Heterogeneous echotexture. Dominant heterogeneous hypoechoic solid nodule gerson uring 3.4 x 3.6 x 3.1 cm. ISTHMUS: Enlarged. Heterogeneous echotexture. No cystic or solid masses. OTHER: No other significant finding. IMPRESSION: Dominant solid nodules in both lobes. Although these meet biopsy criteria based on TI-R ADS 3, the CT appearance is stable since a PET-CT 01/08/2018, at which time were not hypermetabolic. COMMENT: Decision for FNA should be based on clinical suspicion. TECHNICAL DOCUMENTATION: JOB ID: [id number] 2010 [email or web address]- All Rights Reserved Reading location - IP/workstation name: [email or web address]
== END ==
LOC: RAD 14:11
PROVIDERS: ATTEND Physician Assistant Medical
DX: E04.1 Nontoxic single thyroid nodule (principal)
CPT/HCPCS: 76536

== ENCOUNTER → 2020-03-18 | Outpatient (CLI) | payer MEDICARE, OTHER ==
--- NOTE | 2020-03-18 12:24 | RADIOLOGY REPORT (SQ) ---
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 TECHNIQUE: CT scan of the chest performed using helical scanning technique with dynamic intravenous contrast injection. Images reviewed with lung, soft tissue and bone windows. Reconstructed coronal and sagittal MPR and MIP images reviewed. All images stored on PACS. All CT scanners at this facility use dose modulation, iterative reconstruction, and/or weight based d osing when appropriate to reduce radiation dose to as low as reasonably achievable (ALARA). [facility]: Dose Right [facility]: CareDose [facility]: Dose Right [facility]: Teradose 4D [facility]: [employer] CONTRAST TYPE AND DOSE: 100 mL Omnipaque 350- low osmolar. RENAL FUNCTION: Creatinine 1 milligram/deciliter. RADIATION DOSE: CT Rad equipment meets quality standard of care and radiation dose reduction techniq ues were employed. CTDIvol: 10.8 - 13.2 mGy. DLP: 1788 mGy-cm. LIMITATIONS: None. FINDINGS: LUNGS AND PLEURA: The trachea and main bronchi are patent. The abruption creation of the middle lobar bronchus is consistent with prior lobectomy. The nodular densities around the metallic staple line in the left upper lobe (image 18 of series 2) are unchanged. The peripheral reticular op acities in the right lower lobe in the areas of pleural thickening in the posterior aspect of the hem i-thoraces are also unchanged. There is no acute consolidation, ground-glass opacification, pleural effusion or new / enlarging pulmonary nodule. HILAR AND MEDIASTINAL STRUCTURES: Stable nonenlarged right lower paratracheal lymph node (image 19 of series 2). There is no enlarged hilar adenopathy. HEART AND VASCULAR STRUCTURES: No aneurysm or dissection of the thoracic aorta. There is mild-to-mod erate atherosclerotic calcification of the coronary arteries. There is no cardiomegaly or pericardia l effusion HARDWARE: The tip of the left IJ port terminates within the SVC. UPPER ABDOMEN: Refer to the separate report of the CT of the abdomen. THYROID AND OTHER SOFT TISSUES: The thyroid gland is enlarged and heterogeneous. BONES: Unchanged scalloped appearance of the right 7th rib. OTHER: No other finding. IMPRESSION: Postoperative findings consistent with prior right middle lobectomy and sublobar resecti on in the left upper lobe. The nodular densities around the metallic staple line in the left upper l obe (image 18 of series 2) are unchanged. TECHNICAL DOCUMENTATION: JOB ID: [id number] Quality ID # 436: Final reports with documentation of one or more dose reduction techniques (e.g., Au tomated exposure control, adjustment of the mA and/or kV according to patient size, use of iterative reconstruction technique) 2010 [employer]- All Rights Reserved Reading location - IP/workstation name: [email or web address]
--- NOTE | 2020-03-18 12:49 | RADIOLOGY REPORT (SQ) ---
EXAM DESCRIPTION: CT ABD/PELVIS WITH IV ONLY IMAGES COMPLETED DATE/TIME: 03/18/2020 9:22 am REASON FOR STUDY: C34.11 MALIGNANT NEOPLASM OF UPPER LOBE, RIGHT BRONCHUS OR LUNG C34.11 MALIGNANT NEOPLASM OF UPPER LOBE, RIGHT BRONCHUS OR L COMPARISON: CT of the abdomen and pelvis with contrast from 12/27/2019. TECHNIQUE: CT scan of the abdomen and pelvis performed using helical scanning technique with dynamic intravenous contrast injection. No oral contrast. Images reviewed with lung, soft tissue, and bone windows. Reconstructed coronal and sagittal MPR images reviewed. Delayed images for evaluation of the urinary system also acquired. All images stored on PACS. All CT scanners at this facility use dose modulation, iterative reconstruction, and/or weight based d osing when appropriate to reduce radiation dose to as low as reasonably achievable (ALARA). [facility]: Dose Right [facility]: CareDose [facility]: Dose Right [facility]: Teradose 4D [facility]: [employer] CONTRAST TYPE AND DOSE: Contrast/concentration: Isovue 350.00 mmol/ml; Total Contrast Delivered: 100 .0 ml; Total Saline Delivered: 45.0 ml RENAL FUNCTION: Creatinine 1 milligram/deciliter. LIMITATIONS: None. FINDINGS: LOWER CHEST: Refer to the separate report of the CT of the chest. LIVER: The morphology of the liver is noncirrhotic. The portal veins are patent. There is no hepati c mass. SPLEEN: No splenomegaly or splenic mass. PANCREAS: No acute gross abnormality of the pancreas. GALLBLADDER: Cholelithiasis. There is no gallbladder wall thickening or pericholecystic inflammation . ADRENAL GLANDS: Stable 9 mm left adrenal nodule (image 60 of series 604). RIGHT KIDNEY AND URETER: The 13 x 11 mm hypodense lesion in the posterior cortex of the kidney (image 37 of series 3) and the 6 mm hypodense lesion in the inferior cortex of the kidney are unchanged. T here is no hydronephrosis, nephrolithiasis, hydroureter or ureterolithiasis. LEFT KIDNEY AND URETER: The 9 mm exophytic hypodense lesion in the posterior cortex of the kidney is unchanged. There is no hydronephrosis, nephrolithiasis, hydroureter or ureterolithiasis. 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 The left common iliac artery and right internal iliac artery are ectatic. There is no aneurysm or dissection of the abdominal aorta RETROPERITONEUM: No retroperitoneal adenopathy, hemorrhage or mass. BOWEL AND PERITONEAL CAVITY: Colonic diverticulosis without diverticulitis. There is no bowel obstru ction, bowel wall thickening or pericolonic/ perienteric inflammation. There is no mesenteric adenop athy, free intraperitoneal fluid or mesenteric/ omental inflammation. APPENDIX: Normal. PELVIS: The urinary bladder is contracted. There are fiducial markers or surgical clips inferior to the urinary bladder. There is no pelvic adenopathy. ABDOMINAL WALL: No mass or hernia. BONES: No acute fracture or osseous lesion. OTHER: No other finding. IMPRESSION: No acute intra-abdominal abnormality or evidence of metastases. TECHNICAL DOCUMENTATION: JOB ID: [id number] Quality ID # 436: Final reports with documentation of one or more dose reduction techniques (e.g., Au tomated exposure control, adjustment of the mA and/or kV according to patient size, use of iterative reconstruction technique) 2010 [employer]- All Rights Reserved Reading location - IP/workstation name: [email or web address]
== END ==
LOC: RAD 08:51
PROVIDERS: ATTEND Internal Medicine
DX: C34.11 Malignant neoplasm of upper lobe, right bronchus or lung (principal)
CPT/HCPCS: 71260; 74177; 82565

== ENCOUNTER → 2020-05-13 | Outpatient (CLI) | payer MEDICARE, OTHER ==
--- NOTE | 2020-05-13 12:56 | RADIOLOGY REPORT (SQ) ---
EXAM DESCRIPTION: MRI HEAD COMBO IMAGES COMPLETED DATE/TIME: 05/13/2020 11:23 am REASON FOR STUDY: (C34.11)MALIGNANT NEOPLASM OF UPPER LOBE, RIGHT BRONCHUS OR LUNG C34.11 MALIGNANT NEOPLASM OF UPPER LOBE, RIGHT BRONCHUS OR L COMPARISON: None. TECHNIQUE: Multiplanar imaging includes noncontrasted T1, T2, FLAIR, and Diffusion with ADC map seq uences. Contrast enhanced T1 images. Images stored on PACS. CONTRAST TYPE AND DOSE: 20 mL Prohance. RENAL FUNCTION: Not indicated. ACR Type II contrast agent associated with few, if any, unconfounded cases of NSF LIMITATIONS: None. FINDINGS: ANATOMY: No anomalies. Normal vascular flow voids. Pituitary fossa normal. CSF SPACES: Normal size and contour. No hemorrhage. CEREBRUM: A few high-signal intensity lesions scattered throughout the white matter on FLAIR imaging with distribution suggesting chronic microvascular ischemic change. Sulci and gyri normal in size and contour. No evidence of hemorrhage, mass or extraaxial fluid collection. No enhancing lesions. POSTERIOR FOSSA: No signal alteration. No hemorrhage. No edema, masses or mass effect. Internal audit ory canals, cerebello-pontine angles, mastoids normal. DIFFUSION: Negative for acute or subacute infarction. ORBITS: No masses. Globes normal. PARANASAL SINUSES: No fluid levels. Mucosa normal. OTHER: Approximately 10 mm enhancing nodule in the right parietal calvarium consistent with bone meta stasis. IMPRESSION: Bone metastasis. No evidence of brain metastasis. EVIDENCE OF ACUTE STROKE: NO. TECHNICAL DOCUMENTATION: JOB ID: [id number] 2010 [employer]- All Rights Reserved Reading location - IP/workstation name: [email or web address]
== END ==
LOC: RAD 10:00
PROVIDERS: ATTEND Physician Assistant Medical
DX: C34.11 Malignant neoplasm of upper lobe, right bronchus or lung (principal)
CPT/HCPCS: 70553; A9576

== ENCOUNTER → 2020-06-17 | Outpatient (CLI) | payer MEDICARE, OTHER ==
--- NOTE | 2020-06-18 15:12 | RADIOLOGY REPORT (SQ) ---
EXAM DESCRIPTION: CT CHEST WITH IMAGES COMPLETED DATE/TIME: 06/17/2020 10:38 am REASON FOR STUDY: C34.11 MALIGNANT NEOPLASM OF UPPER LOBE, RIGHT BRONCHUS OR LUNG C34.11 MALIGNANT NEOPLASM OF UPPER LOBE, RIGHT BRONCHUS OR L COMPARISON: 03/18/2020 TECHNIQUE: CT scan of the chest performed using helical scanning technique with dynamic intravenous contrast injection. Images reviewed with lung, soft tissue and bone windows. Reconstructed coronal and sagittal MPR and MIP images reviewed. All images stored on PACS. All CT scanners at this facility use dose modulation, iterative reconstruction, and/or weight based d osing when appropriate to reduce radiation dose to as low as reasonably achievable (ALARA). [facility]: Dose Right [facility]: CareDose [facility]: Dose Right [facility]: Teradose 4D [facility]: Smart [employer] RENAL FUNCTION: GFR > 60. RADIATION DOSE: CT Rad equipment meets quality standard of care and radiation dose reduction techniq ues were employed. CTDIvol: 11.6 - 12.3 mGy. DLP: 1804 mGy-cm. . LIMITATIONS: None. FINDINGS: LUNGS AND PLEURA: Postsurgical changes in both lungs. Stable pleural thickening along the left major fissure. No developing nodules or infiltrate. No effusions. HILAR AND MEDIASTINAL STRUCTURES: No identified masses or abnormal nodes. HEART AND VASCULAR STRUCTURES: No aneurysm or dissection. No central pulmonary emboli. No pericardi al effusion. HARDWARE: None in the chest. UPPER ABDOMEN: See separate report of the CT of the abdomen. THYROID AND OTHER SOFT TISSUES: Stable thyroid nodules. BONES: No acute findings. OTHER: Left-sided port tip SVC. IMPRESSION: Stable appearance of the chest. TECHNICAL DOCUMENTATION: JOB ID: [id number] Quality ID # 436: Final reports with documentation of one or more dose reduction techniques (e.g., Au tomated exposure control, adjustment of the mA and/or kV according to patient size, use of iterative reconstruction technique) 2010 [employer]- All Rights Reserved Reading location - IP/workstation name: [email or web address]
--- NOTE | 2020-06-18 15:16 | RADIOLOGY REPORT (SQ) ---
EXAM DESCRIPTION: CT ABD/PELVIS WITH IV ONLY IMAGES COMPLETED DATE/TIME: 06/17/2020 10:38 am REASON FOR STUDY: C34.11 MALIGNANT NEOPLASM OF UPPER LOBE, RIGHT BRONCHUS OR LUNG C34.11 MALIGNANT NEOPLASM OF UPPER LOBE, RIGHT BRONCHUS OR L COMPARISON: 03/18/2020 TECHNIQUE: CT scan of the abdomen and pelvis performed using helical scanning technique with dynamic intravenous contrast injection. No oral contrast. Images reviewed with lung, soft tissue, and bone windows. Reconstructed coronal and sagittal MPR images reviewed. Delayed images for evaluation of the urinary system also acquired. All images stored on PACS. All CT scanners at this facility use dose modulation, iterative reconstruction, and/or weight based d osing when appropriate to reduce radiation dose to as low as reasonably achievable (ALARA). [facility]: Dose Right [facility]: CareDose [facility]: Dose Right [facility]: Teradose 4D [facility]: [employer] CONTRAST TYPE AND DOSE: contrast/concentration: Isovue 350.00 mmol/ml; Total Contrast Delivered: 100 .0 ml; Total Saline Delivered: 72.0 ml RENAL FUNCTION: GFR > 60. RADIATION DOSE: . LIMITATIONS: None. FINDINGS: LOWER CHEST: See separate report of the CT of the chest. LIVER: Normal size. No masses. No dilated ducts. SPLEEN: Normal size. No focal lesions. PANCREAS: No masses. No significant calcifications. No adjacent inflammation or peripancreatic fluid collections. Pancreatic duct not dilated. GALLBLADDER: Gallstones. No inflammatory changes to suggest cholecystitis. ADRENAL GLANDS: No significant masses or asymmetry. RIGHT KIDNEY AND URETER: No solid masses. No significant calcifications. No hydronephrosis or hyd roureter. LEFT KIDNEY AND URETER: No solid masses. No significant calcifications. No hydronephrosis or hydr oureter. AORTA AND VESSELS: Unchanged right common iliac aneurysm. RETROPERITONEUM: No retroperitoneal adenopathy, hemorrhage or masses. BOWEL AND PERITONEAL CAVITY: No masses or inflammatory changes. No free fluid or peritoneal masses. APPENDIX: Normal. PELVIS: No mass. No free fluid. Normal bladder. ABDOMINAL WALL: Diastases of the rectus musculature. BONES: No acute findings. OTHER: No other significant finding. IMPRESSION: No evidence of metastatic disease. TECHNICAL DOCUMENTATION: JOB ID: [id number] Quality ID # 436: Final reports with documentation of one or more dose reduction techniques (e.g., Au tomated exposure control, adjustment of the mA and/or kV according to patient size, use of iterative reconstruction technique) 2010 [employer]- All Rights Reserved Reading location - IP/workstation name: [email or web address]
== END ==
LOC: RAD 09:55
PROVIDERS: ATTEND Internal Medicine
DX: C34.11 Malignant neoplasm of upper lobe, right bronchus or lung (principal)
CPT/HCPCS: 71260; 74177; 82565